=== PATIENT | female | born 2000 | race Caucasian/White ===

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

== ENCOUNTER → 2021-02-02 | Outpatient (CLI) | payer BC ==
[2021-02-02 16:21] LABS: HCT 43.3 % (37.2-46.3); HGB 14.2 g/dL (12.0-15.0); MCH 28.5 pg (27.0-32.0); MCHC 32.8 g/dL (32.0-37.0); MCV 86.8 fL (80.0-97.0); Mean Platelet Volume 9.5 fL (9.5-12.2); Platelet Count 367 X 10*3/uL (140-440); RBC 4.99 X 10*6/uL (4.10-5.20); RDW 12.7 % (11.5-14.5); WBC 9.11 X 10*3/uL (4.50-10.00)
[2021-02-02 16:28] LABS: African American GFR (CKD) 123.9 (60.0-200.0); Albumin 4.7 g/dL (3.80-4.90); Albumin/Globulin Ratio 1.52 (1.60-3.17); Anion Gap 7.8 mmol/L (4.00-12.00); BUN/Creat Ratio 12.5 Ratio (12.00-20.00); Calcium 9.8 mg/dL (8.7-10.3); Carbon Dioxide 25.2 mmol/L (21.6-31.8); Chol/HDL Ratio 3.77; Globulin 3.1 g/dL (1.6-3.3); LDL Cholesterol,Calculated 144.8 mg/dL (0.0-131.0); Non-African American GFR(CKD) 106.9 (60.0-200.0); Potassium 4.6 mmol/L (3.5-5.5); Total Bilirubin 0.4 mg/dL (0.3-1.2); Total Protein 7.8 g/dL (6.2-8.2); VLDL Calculation 21.2 mg/dL (5.00-40.00)
[2021-02-02 16:36] LABS: T4, Free (Free Thyroxine) 1.3 ng/dL (0.83-1.43)
[2021-02-02 21:26] LABS: Hemoglobin A1C 4.3 % (4.0-6.0)
== END | disposition home or self-care (01) ==
LOC: LABWHC1 11:53
PROVIDERS: ATTEND Pediatrics
DX: L83 Acanthosis nigricans (principal)
CPT/HCPCS: 36415; 80053; 80061; 82306; 83036; 84439; 84443; 85027

== ENCOUNTER 2021-05-03 08:39 | Emergency (ER) | payer BC ==
[2021-05-03 08:44] VITALS: RESP 18; TEMP 99.1
[2021-05-03] MEDS ORDERED: SODIUM CHLORIDE 0.9% 500 ML 500 ML IV STA (08:50)
--- NOTE | 2021-05-03 08:54 | ED ---
Abdominal Pain HPI - General Chief Complaint: Abdominal Pain Stated Complaint: Abdominal Pain Source: patient, RN notes reviewed Mode of arrival: ambulatory Limitations: no limitations - History of Present Illness Initial Comments: Patient is 21-year-old female presenting to the ED for abdominal pain. Patient states that 3 months prior had similar generalized discomfort and was told by PCP she had an inflamed gallbladder and to watch her symptoms to increase. Patient states the symptoms became worse in the last 3 days with increased pain in the right upper quadrant. Patient states that she's had decrease in appetite over the last 3 days but denies nausea, vomiting, fever, changes in bowel movements or urination. Patient denies symptoms related to menstrual cycle her chance of being at this time. - Related Data Home Medications Medication Instructions Recorded Confirmed Medroxyprogesterone Acetate 150 mg IM Q84D 01/28/17 05/03/21 [Depo-Provera] FLUoxetine HCL [PROzac] 10 mg PO DAILY 05/03/21 05/03/21 Previous Rx's Medication Instructions Recorded Ondansetron Odt [Zofran Odt] 4 mg PO Q8HR PRN #10 tab 05/03/21 Allergies Allergy/AdvReac Type Severity Reaction Status Date / Time benzonatate Allergy Rash/Hives Verified 05/03/21 10:39 [From Anselmo Ridley] Review of Systems ROS Statement: Those systems with pertinent positive or pertinent negative responses have been documented in the HPI. ROS Other: All systems not noted in ROS Statement are negative. Past Medical History Past Medical History: No Reported History Additional Past Medical History / Comment(s): cholecystits History of Any Multi-Drug Resistant Organisms: None Reported Past Surgical History: No Surgical Hx Reported Past Psychological History: Anxiety Smoking Status: Never smoker Past Alcohol Use History: None Reported Past Drug Use History: None Reported General Exam Limitations: no limitations General appearance: alert, in no apparent distress Respiratory exam: Present: normal lung sounds bilaterally. Absent: respiratory distress, wheezes, rales, rhonchi, stridor Cardiovascular Exam: Present: regular rate, normal rhythm, normal heart sounds. Absent: systolic murmur, diastolic murmur, rubs, gallop, clicks GI/Abdominal exam: Present: soft, tenderness (Right upper quadrant, mild), guarding, normal bowel sounds Back exam: Present: normal inspection Neurological exam: Present: alert, oriented X3 Skin exam: Present: warm, dry, intact, normal color. Absent: rash Course Vital Signs 05/03/21 08:41 Temperature 99.1 F Pulse Rate 72 Respiratory 18 Rate Blood Pressure 146/88 O2 Sat by Pulse 99 Oximetry Medical Decision Making - Medical Decision Making Ultrasound labs reviewed patient has evidence of fatty liver disease. Patient may have underlying biliary dyskinesia will follow-up with on-call surgery return parameters were discussed. - Lab Data Result diagrams: 05/03/21 09:20 05/03/21 09:20 Lab Results 05/03/21 05/03/21 05/03/21 Range/Units 09:20 09:20 10:00 WBC 7.3 (4.0-11.0) k/uL RBC 5.49 H (3.80-5.40) m/uL Hgb 15.9 (11.4-16.0) gm/dL Hct 48.7 H (34.0-46.0) % MCV 88.7 (80.0-100.0) fL MCH 29.0 (25.0-35.0) pg MCHC 32.7 (31.0-37.0) g/dL RDW 12.9 (11.5-15.5) % Plt Count 293 (150-450) k/uL MPV 8.5 Neutrophils % 54 % Lymphocytes % 36 % Monocytes % 5 % Eosinophils % 3 % Basophils % 1 % Neutrophils # 4.0 (1.3-7.7) k/uL Lymphocytes # 2.6 (1.0-4.8) k/uL Monocytes # 0.4 (0-1.0) k/uL Eosinophils # 0.2 (0-0.7) k/uL Basophils # 0.0 (0-0.2) k/uL Sodium 140 (137-145) mmol/L Potassium 4.5 (3.5-5.1) mmol/L Chloride 108 H (98-107) mmol/L Carbon Dioxide 20 L (22-30) mmol/L Anion Gap 12 mmol/L BUN 9 (7-17) mg/dL Creatinine 0.62 (0.52-1.04) mg/dL Est GFR (CKD-EPI)AfAm >90 (>60 ml/min/1.73 sqM) Est GFR (CKD-EPI)NonAf >90 (>60 ml/min/1.73 sqM) Glucose 94 (74-99) mg/dL Calcium 10.1 (8.4-10.2) mg/dL Total Bilirubin 0.5 (0.2-1.3) mg/dL AST 30 (14-36) U/L ALT 33 (4-34) U/L Alkaline Phosphatase 85 (38-126) U/L Total Protein 8.6 H (6.3-8.2) g/dL Albumin 4.9 (3.5-5.0) g/dL Lipase 69 (23-300) U/L Urine Color Colorless Urine Appearance Cloudy H (Clear) Urine pH 5.0 (5.0-8.0) Ur Specific [place] 1.005 (1.001-1.035) Urine Protein Negative (Negative) Urine Glucose (UA) Negative (Negative) Urine Ketones Negative (Negative) Urine Blood Negative (Negative) Urine Nitrite Negative (Negative) Urine Bilirubin Negative (Negative) Urine Urobilinogen <2.0 (<2.0) mg/dL Ur Leukocyte Esterase Negative (Negative) Urine WBC 3 (0-5) /hpf Ur Squamous Epith Cells 7 H (0-4) /hpf Urine Bacteria Many H (None) /hpf Urine Mucus Rare H (None) /hpf Urine HCG, Qual (Not Detectd) 05/03/21 Range/Units 10:00 WBC (4.0-11.0) k/uL RBC (3.80-5.40) m/uL Hgb (11.4-16.0) gm/dL Hct (34.0-46.0) % MCV (80.0-100.0) fL MCH (25.0-35.0) pg MCHC (31.0-37.0) g/dL RDW (11.5-15.5) % Plt Count (150-450) k/uL MPV Neutrophils % % Lymphocytes % % Monocytes % % Eosinophils % % Basophils % % Neutrophils # (1.3-7.7) k/uL Lymphocytes # (1.0-4.8) k/uL Monocytes # (0-1.0) k/uL Eosinophils # (0-0.7) k/uL Basophils # (0-0.2) k/uL Sodium (137-145) mmol/L Potassium (3.5-5.1) mmol/L Chloride (98-107) mmol/L Carbon Dioxide (22-30) mmol/L Anion Gap mmol/L BUN (7-17) mg/dL Creatinine (0.52-1.04) mg/dL Est GFR (CKD-EPI)AfAm (>60 ml/min/1.73 sqM) Est GFR (CKD-EPI)NonAf (>60 ml/min/1.73 sqM) Glucose (74-99) mg/dL Calcium (8.4-10.2) mg/dL Total Bilirubin (0.2-1.3) mg/dL AST (14-36) U/L ALT (4-34) U/L Alkaline Phosphatase (38-126) U/L Total Protein (6.3-8.2) g/dL Albumin (3.5-5.0) g/dL Lipase (23-300) U/L Urine Color Urine Appearance (Clear) Urine pH (5.0-8.0) Ur Specific [place] (1.001-1.035) Urine Protein (Negative) Urine Glucose (UA) (Negative) Urine Ketones (Negative) Urine Blood (Negative) Urine Nitrite (Negative) Urine Bilirubin (Negative) Urine Urobilinogen (<2.0) mg/dL Ur Leukocyte Esterase (Negative) Urine WBC (0-5) /hpf Ur Squamous Epith Cells (0-4) /hpf Urine Bacteria (None) /hpf Urine Mucus (None) /hpf Urine HCG, Qual Not Detected (Not Detectd) Disposition Clinical Impression: Abdominal pain, Biliary colic symptom Disposition: HOME SELF-CARE Condition: Stable Instructions (If sedation given, give patient instructions): Abdominal Pain (ED), Biliary Colic (ED) Additional Instructions: Please return to the Emergency Department if symptoms worsen or any other concerns. Prescriptions: Ondansetron Odt [Zofran Odt] 4 mg PO Q8HR PRN #10 tab PRN Reason: Nausea Is patient prescribed a controlled substance at d/c from ED?: No Referrals: Arun Tidwell MD [Primary Care Provider] - 1-2 days Ever Winslow MD [STAFF PHYSICIAN] - 1-2 days Time of Disposition: 10:52
[2021-05-03 09:59] LABS: Basophils % (A) 1 %; Eosinophils # (A) 0.2 k/uL (0-0.7); Eosinophils % (A) 3 %; HCT 48.7 % (34.0-46.0); HGB 15.9 gm/dL (11.4-16.0); Lymphocytes # (A) 2.6 k/uL (1.0-4.8); Lymphocytes % (A) 36 %; MCHC 32.7 g/dL (31.0-37.0); MCV 88.7 fL (80.0-100.0); Mean Platelet Volume 8.5; Monocytes # (A) 0.4 k/uL (0-1.0); Monocytes % (A) 5 %; Neutrophils % (A) 54 %; Platelet Count 293 k/uL (150-450); RBC 5.49 m/uL (3.80-5.40); RDW 12.9 % (11.5-15.5); WBC 7.3 k/uL (4.0-11.0)
--- NOTE | 2021-05-03 10:00 | US ---
EXAMINATION TYPE: US gallbladder DATE OF EXAM: 05/03/2021 COMPARISON: NONE CLINICAL HISTORY: RUQ pain. EXAM MEASUREMENTS: Liver Length: 13.9 cm Gallbladder Wall: 0.2 cm CBD: 0.3 cm Right Kidney: 8.4x5.2x4.8 cm Pancreas: Tail obscured by overlying bowel gas Liver: ? large area of focal fatty sparring Gallbladder: wnl Evidence for sonographic Ackerman's sign: No CBD: wnl Right Kidney: wnl IMPRESSION: Fatty liver with areas of focal fatty sparing.
[2021-05-03 10:09] LABS: ALT 33 U/L (4-34); African American GFR (CKD) >90 (>60 ml/min/1.73 sqM); Albumin 4.9 g/dL (3.5-5.0); Anion Gap 12 mmol/L; Blood Urea Nitrogen 9 mg/dL (7-17); Calcium 10.1 mg/dL (8.4-10.2); Carbon Dioxide 20 mmol/L (22-30); Chloride 108 mmol/L (98-107); Glucose 94 mg/dL (74-99); Lipase 69 U/L (23-300); Non-African American GFR(CKD) >90 (>60 ml/min/1.73 sqM); Sodium 140 mmol/L (137-145); Total Bilirubin 0.5 mg/dL (0.2-1.3); Total Protein 8.6 g/dL (6.3-8.2)
[2021-05-03 10:11] LABS: AST 30 U/L (14-36); Alkaline Phosphatase 85 U/L (38-126); Potassium 4.5 mmol/L (3.5-5.1)
[2021-05-03 10:25] LABS: Appearance,Urine Cloudy (Clear); Bacteria,Urine Many /hpf; Bilirubin,Urine Negative (Negative); Blood,Urine Negative (Negative); Color,Urine Colorless; Glucose,Urine (UA) Negative (Negative); Ketones,Urine Negative (Negative); Leukocyte Esterase,Urine Negative (Negative); Mucus,Urine Rare /hpf; Nitrite,Urine Negative (Negative); Protein,Urine Negative (Negative); Specific Gravity,Urine 1.005 (1.001-1.035); Squamous Epithelial Cell,Urine 7 /hpf (0-4); Urobilinogen,Urine <2.0 mg/dL (<2.0); WBC,Urine 3 /hpf (0-5)
[2021-05-03] MEDS ORDERED: ACET/COD 300 MG/30 MG STARTER PACK 6 TAB BTL PO STA (10:51)
[2021-05-03 11:28] VITALS: BP 124/63; PULSE 62
== END 2021-05-03 11:28 | disposition home or self-care (01) ==
LOC: EC 08:39
DX: R10.84 Generalized abdominal pain (principal); F41.9 Anxiety disorder, unspecified
CPT/HCPCS: 36415; 76705; 80053; 81001; 81025; 83690; 85025; 99284

== ENCOUNTER 2021-05-06 10:44 | Emergency (ER) | payer BC ==
[2021-05-06 12:56] VITALS: TEMP 98.2
[2021-05-06] MEDS ORDERED: MORPHINE SULFATE 2 MG/ML SYRINGE IVP STA ×2 (16:43→19:53)
[2021-05-06] MEDS ORDERED: KETOROLAC 15 MG/ML 1 ML VIAL IVP STA (16:43)
[2021-05-06] MEDS ORDERED: SODIUM CHLORIDE 0.9% 1,000 ML IV STA (16:43)
[2021-05-06] MEDS ORDERED: ONDANSETRON 4 MG/2 ML VIAL IVP STA (16:43)
[2021-05-06 17:17] LABS: Basophils % (A) 0 %; Eosinophils # (A) 0.3 k/uL (0-0.7); Eosinophils % (A) 3 %; HCT 49.3 % (34.0-46.0); HGB 16.7 gm/dL (11.4-16.0); Lymphocytes # (A) 2.5 k/uL (1.0-4.8); Lymphocytes % (A) 24 %; MCH 29.6 pg (25.0-35.0); MCHC 33.9 g/dL (31.0-37.0); MCV 87.4 fL (80.0-100.0); Monocytes # (A) 0.4 k/uL (0-1.0); Monocytes % (A) 4 %; Neutrophils # (A) 6.9 k/uL (1.3-7.7); Neutrophils % (A) 68 %; Platelet Count 330 k/uL (150-450); RBC 5.63 m/uL (3.80-5.40); RDW 12.9 % (11.5-15.5); WBC 10.2 k/uL (4.0-11.0)
[2021-05-06 17:48] LABS: ALT 69 U/L (4-34); AST 46 U/L (14-36); African American GFR (CKD) >90 (>60 ml/min/1.73 sqM); Albumin 5.2 g/dL (3.5-5.0); Alkaline Phosphatase 88 U/L (38-126); Amylase 57 U/L (30-110); Anion Gap 13 mmol/L; Blood Urea Nitrogen 11 mg/dL (7-17); Calcium 10.6 mg/dL (8.4-10.2); Carbon Dioxide 23 mmol/L (22-30); Chloride 103 mmol/L (98-107); Glucose 107 mg/dL (74-99); Lipase 54 U/L (23-300); Non-African American GFR(CKD) >90 (>60 ml/min/1.73 sqM); Potassium 4.2 mmol/L (3.5-5.1); Sodium 139 mmol/L (137-145); Total Bilirubin 0.5 mg/dL (0.2-1.3); Total Protein 9.3 g/dL (6.3-8.2)
--- NOTE | 2021-05-06 18:22 | US ---
EXAMINATION TYPE: US pelvic complete DATE OF EXAM: 05/06/2021 COMPARISON: NONE CLINICAL HISTORY: evaluate for torsion. Pain. Evaluate for torsion. G0. Patient not sexually active. TA per Dr. Vasquez. TECHNIQUE: Transabdominal (TA). Date of LMP: Unknown. EXAM MEASUREMENTS: Uterus: 7.4 x 3.9 x 2.4 cm Endometrial Stripe: 0.41 cm Right Ovary: 3.7 x 1.5 x 1.9 cm Left Ovary: 3.2 x 2.3 x 1.8 cm 1. Uterus: Anteverted 2. Endometrium: Measures 0.41 cm. 3. Right Ovary: Subcentimeter anechoic areas seen. ?Measures upper limits of normal. 4. Left Ovary: Appears wnl. Spectral, color and waveform doppler imaging shows arterial and venous flow within the ovaries. 5. Bilateral Adnexa: Appear wnl. 6. Posterior cul-de-sac: Appears wnl. IMPRESSION: Negative exam. No evidence of ovarian torsion.
[2021-05-06 18:27] LABS: Appearance,Urine Clear (Clear); Bilirubin,Urine Negative (Negative); Blood,Urine Negative (Negative); Color,Urine Light Yellow; Glucose,Urine (UA) Negative (Negative); Ketones,Urine Negative (Negative); Leukocyte Esterase,Urine Negative (Negative); Nitrite,Urine Negative (Negative); PH, Urine 6.5 (5.0-8.0); Protein,Urine Negative (Negative); Specific Gravity,Urine 1.011 (1.001-1.035); Urobilinogen,Urine <2.0 mg/dL (<2.0)
[2021-05-06] MEDS ORDERED: METOCLOPRAMIDE 5 MG/ML 2 ML VIAL IVP STA (19:20)
--- NOTE | 2021-05-06 19:27 | ED ---
General Adult HPI - General Chief complaint: Abdominal Pain Stated complaint: right side abd pain Time Seen by Provider: 05/06/21 15:51 Source: patient, RN notes reviewed, old records reviewed Mode of arrival: ambulatory Limitations: no limitations - History of Present Illness Initial comments: Patient is a 21-year-old female with no significant past medical history presents emergency Department after being seen last week for similar complaints. Patient is currently complaining of right upper quadrant abdominal pain. She states she was evaluated last and she is here for similar complaint which was found to be relatively unremarkable and discharged for follow-up with surgery. Gallbladder ultrasound at that time did not reveal any signs of acute cholecystitis. Is a fatty liver with areas of focal fatty sparing. She states that symptoms somewhat improved but returns today with continued pain as well as new pain in the right lower quadrant. She states she feels nauseous but denies any episodes of emesis or diarrhea. Denies any chest pain, shortness of breath. Denies any fevers, chills, cough. Denies any sick contacts or urinary comp laints at this time. Patient is not sexually active. She denies any vaginal discharge or bleeding. She has an unknown history personally as well as familial for ovarian cyst. She has no other acute complaints at this time. She presents over concern for nausea as well as abdominal discomfort. - Related Data Home Medications Medication Instructions Recorded Confirmed Medroxyprogesterone Acetate 150 mg IM Q84D 01/28/17 05/03/21 [Depo-Provera] FLUoxetine HCL [PROzac] 10 mg PO DAILY 05/03/21 05/03/21 Previous Rx's Medication Instructions Recorded Ondansetron Odt [Zofran Odt] 4 mg PO Q8HR PRN #10 tab 05/03/21 HYDROcodone/APAP 5-325MG [Crapo 5] 1 each PO Q6HR PRN 3 Days #12 tab 05/06/21 Metoclopramide [Reglan] 5 mg PO BID PRN 4 Days #8 tab 05/06/21 Allergies Allergy/AdvReac Type Severity Reaction Status Date / Time benzonatate Allergy Rash/Hives Verified 05/06/21 12:54 [From Anselmo Ridley] Review of Systems ROS Statement: Those systems with pertinent positive or pertinent negative responses have been documented in the HPI. Review of Systems: CONST: Denies fever EYES: Denies blurry vision ENT: Denies nasal congestion C/V: Denies Chest pain RESP: Denies shortness of breath GI: Endorses abdominal pain : Denies dysuria SKIN: Denies rash. MSK: Denies joint pain. NEURO: Denies headache ROS Other: All systems not noted in ROS Statement are negative. Past Medical History Past Medical History: No Reported History Additional Past Medical History / Comment(s): cholecystits History of Any Multi-Drug Resistant Organisms: None Reported Past Surgical History: No Surgical Hx Reported Past Psychological History: Anxiety Smoking Status: Never smoker Past Alcohol Use History: None Reported Past Drug Use History: None Reported General Exam - General Exam Comments Initial Comments: General: Appears in no acute distress. HEAD: Normal with no signs of head trauma. EYES: PERRLA, EOMI, conjunctiva normal, no discharge. ENT: Hearing grossly intact, normal oropharynx. RESPIRATORY: Clear breath sounds bilaterally. No wheezes, rales, or rhonchi. C/V: Regular rate and rhythm. S1 and S2 auscultated, no edema, peripheral pulses 2+ and intact throughout ABD: Abdomen is soft, nondistended. Patient has mild tender to palpation of the right upper quadrant as well as right lower quadrant. She is no suprapubic of left-sided abdominal pain. She is now back pain or tenderness in the CVA to percussion. No rebound tenderness. No peritoneal signs. EXT: Normal range of motion, no obvious deformity SKIN: No rashes or lesions observed on exposed skin. NEURO: Alert and Oriented 4. Limitations: no limitations Course Vital Signs 05/06/21 12:54 Temperature 98.2 F Pulse Rate 73 Respiratory 18 Rate Blood Pressure 142/83 O2 Sat by Pulse 99 Oximetry Medical Decision Making - Medical Decision Making Based on the patient's presentation and physical exam, I'm concerned for possible intra-abdominal pathology for current symptoms. She is a revisit from prior visit. She has no pain in the right lower quadrant of her abdomen. Workup last time was unremarkable. We will repeat abdominal laboratory studies at this time. I will also add on a urinalysis, test, as well as a pelvic ultrasound rule out possibility of ovarian torsion. She was in agreement with this plan. CT abdomen and pelvis will also be obtained to assess for acute intra-abdominal process such as appendicitis. Patient was in agreement this plan. She'll be sent likely treated with IV Toradol, morphine, Zofran, 1 L fluid bolus. Patient was in agreement this plan. Lavatory studies were remarkable for mildly elevated AST and ALT of 46 and 69. Urinalysis is unremarkable. She is not . The remainder of her labs are relatively unremarkable. She does have a mild hypercalcemia of 10.6. Patient's pelvis ultrasound was unremarkable and showed no signs of ovarian torsion. Patient is a little nauseous while we are waiting for results of CT imaging and was administered Reglan. Patient's CT and pelvis was unremarkable and showed no acute intra-abdominal process. Reevaluation come patient was feeling improved. She has tolerated by mouth intake at this time. She already has an appointment with Dr. Winslow for tomorrow. I do believe it is safer to be discharged home at this time with follow-up with her surgeon tomorrow. There were in agreement this plan. I will provide the patient with a prescription for 12 tabs of Crapo 5, Reglan. I instructed the patient to follow up with their PCP in the next 3 days. I inst ructed them to keep their appointment with Dr. Winslow tomorrow. I explained that the patient should return to the emergency department if they experience any worsening symptoms. Strict return precautions were discussed with the patient. The patient expressed understanding of these instructions. I answered all questions that the patient had. The patient was discharged home in fair condition with their prescriptions and follow up information. - Lab Data Result diagrams: 05/06/21 17:07 05/06/21 17:07 Lab Results 05/06/21 05/06/21 05/06/21 Range/Units 16:44 17:07 17:07 WBC 10.2 (4.0-11.0) k/uL RBC 5.63 H (3.80-5.40) m/uL Hgb 16.7 H (11.4-16.0) gm/dL Hct 49.3 H (34.0-46.0) % MCV 87.4 (80.0-100.0) fL MCH 29.6 (25.0-35.0) pg MCHC 33.9 (31.0-37.0) g/dL RDW 12.9 (11.5-15.5) % Plt Count 330 (150-450) k/uL MPV 7.0 Neutrophils % 68 % Lymphocytes % 24 % Monocytes % 4 % Eosinophils % 3 % Basophils % 0 % Neutrophils # 6.9 (1.3-7.7) k/uL Lymphocytes # 2.5 (1.0-4.8) k/uL Monocytes # 0.4 (0-1.0) k/uL Eosinophils # 0.3 (0-0.7) k/uL Basophils # 0.0 (0-0.2) k/uL Sodium 139 (137-145) mmol/L Potassium 4.2 (3.5-5.1) mmol/L Chloride 103 (98-107) mmol/L Carbon Dioxide 23 (22-30) mmol/L Anion Gap 13 mmol/L BUN 11 (7-17) mg/dL Creatinine 0.67 (0.52-1.04) mg/dL Est GFR (CKD-EPI)AfAm >90 (>60 ml/min/1.73 sqM) Est GFR (CKD-EPI)NonAf >90 (>60 ml/min/1.73 sqM) Glucose 107 H (74-99) mg/dL Plasma Lactic Acid Adrian (0.7-2.0) mmol/L Calcium 10.6 H (8.4-10.2) mg/dL Total Bilirubin 0.5 (0.2-1.3) mg/dL AST 46 H (14-36) U/L ALT 69 H (4-34) U/L Alkaline Phosphatase 88 (38-126) U/L Total Protein 9.3 H (6.3-8.2) g/dL Albumin 5.2 H (3.5-5.0) g/dL Amylase 57 (30-110) U/L Lipase 54 (23-300) U/L Urine Color Urine Appearance (Clear) Urine pH (5.0-8.0) Ur Specific Molino (1.001-1.035) Urine Protein (Negative) Urine Glucose (UA) (Negative) Urine Ketones (Negative) Urine Blood (Negative) Urine Nitrite (Negative) Urine Bilirubin (Negative) Urine Urobilinogen (<2.0) mg/dL Ur Leukocyte Esterase (Negative) Urine HCG, Qual Not Detected (Not Detectd) 05/06/21 05/06/21 Range/Units 17:07 18:08 WBC (4.0-11.0) k/uL RBC (3.80-5.40) m/uL Hgb (11.4-16.0) gm/dL Hct (34.0-46.0) % MCV (80.0-100.0) fL MCH (25.0-35.0) pg MCHC (31.0-37.0) g/dL RDW (11.5-15.5) % Plt Count (150-450) k/uL MPV Neutrophils % % Lymphocytes % % Monocytes % % Eosinophils % % Basophils % % Neutrophils # (1.3-7.7) k/uL Lymphocytes # (1.0-4.8) k/uL Monocytes # (0-1.0) k/uL Eosinophils # (0-0.7) k/uL Basophils # (0-0.2) k/uL Sodium (137-145) mmol/L Potassium (3.5-5.1) mmol/L Chloride (98-107) mmol/L Carbon Dioxide (22-30) mmol/L Anion Gap mmol/L BUN (7-17) mg/dL Creatinine (0.52-1.04) mg/dL Est GFR (CKD-EPI)AfAm (>60 ml/min/1.73 sqM) Est GFR (CKD-EPI)NonAf (>60 ml/min/1.73 sqM) Glucose (74-99) mg/dL Plasma Lactic Acid Adrian 1.3 (0.7-2.0) mmol/L Calcium (8.4-10.2) mg/dL Total Bilirubin (0.2-1.3) mg/dL AST (14-36) U/L ALT (4-34) U/L Alkaline Phosphatase (38-126) U/L Total Protein (6.3-8.2) g/dL Albumin (3.5-5.0) g/dL Amylase (30-110) U/L Lipase (23-300) U/L Urine Color Light Yellow Urine Appearance Clear (Clear) Urine pH 6.5 (5.0-8.0) Ur Specific Molino 1.011 (1.001-1.035) Urine Protein Negative (Negative) Urine Glucose (UA) Negative (Negative) Urine Ketones Negative (Negative) Urine Blood Negative (Negative) Urine Nitrite Negative (Negative) Urine Bilirubin Negative (Negative) Urine Urobilinogen <2.0 (<2.0) mg/dL Ur Leukocyte Esterase Negative (Negative) Urine HCG, Qual (Not Detectd) Disposition Clinical Impression: Abdominal pain of unknown cause, Nausea Disposition: HOME SELF-CARE Condition: Fair Instructions (If sedation given, give patient instructions): Abdominal Pain (ED) Prescriptions: HYDROcodone/APAP 5-325MG [Crapo 5] 1 each PO Q6HR PRN 3 Days #12 tab PRN Reason: Pain Metoclopramide [Reglan] 5 mg PO BID PRN 4 Days #8 tab PRN Reason: Nausea Is patient prescribed a controlled substance at d/c from ED?: No Referrals: Arun Tidwell MD [Primary Care Provider] - 1-2 days
--- NOTE | 2021-05-06 19:37 | CT ---
EXAMINATION TYPE: CT abdomen pelvis w con DATE OF EXAM: 05/06/2021 COMPARISON: None HISTORY: RUQ and RLQ pain. CT DLP: 1070 mGycm Automated exposure control for dose reduction was used. CONTRAST: Performed with IV Contrast, patient injected with 100 mL of Isovue 300. Images obtained from the diaphragm to the floor the pelvis with IV contrast. Lung bases are clear. There is no pleural effusion. Heart size is normal. There is no pericardial eff usion. Liver spleen stomach pancreas gallbladder appear intact bile ducts are not dilated. There is n o adrenal mass. Kidneys show satisfactory contrast opacification. There is no hydronephrosis. Appendi x appears normal. Bladder distends smoothly. There is no inguinal hernia. There is no free fluid in t he pelvis. There is no mesenteric edema. There is no ascites or free air. There is no bowel obstruction. There i s no evidence of a pelvic mass. The lumbar vertebra have normal alignment. Posterior elements are intact. The bony pelvis is intact. Hip joints are intact. IMPRESSION: Negative CT scan abdomen and pelvis. Normal appendix. No sign of inflammatory bowel disease. No renal stone or obstruction.
[2021-05-06 20:46] VITALS: BP 121/68; PULSE 62; RESP 16
== END 2021-05-06 20:46 | disposition home or self-care (01) ==
LOC: EC 10:44
DX: R10.11 Right upper quadrant pain (principal); R11.0 Nausea; F41.9 Anxiety disorder, unspecified
CPT/HCPCS: 99284; 96374; 96375 ×3; 96376; 96361 ×3; 36415; 80053; 82150; 83605; 83690; 85025; 81003; 81025; 93975; 76856; 74177; J2765; J2405; J2270; J1885; Q9967

== ENCOUNTER → 2021-05-14 | Outpatient (CLI) | payer BC ==
--- NOTE | 2021-05-14 11:42 | NM ---
EXAMINATION TYPE: NM hepatobiliary w EF DATE OF EXAM: 05/14/2021 COMPARISON: NONE INDICATION: Biliary dyskinesia TECHNIQUE: After the intravenous administration of 4.2 mCi Tc 99m Mebrofenin hepatobiliary scintigrap hy is performed. Images were obtained immediately post injection. FINDINGS: There is prompt uptake and excretion of radiotracer by the liver. Extrahepatic ducts are identified at C6 minutes. The gallbladder is visualized within 4 minutes. Small bowel activity is noted within 18 minutes. At one hour 8 ounces of oral ensure plus is given to mimic CCK and gallbladder ejection fraction is c alculated at 83 %, which is elevated. (Normal >35% and <80%.). IMPRESSION: 1. Correlate for biliary hyperkinesia with an ejection fraction of 83%.
== END | disposition home or self-care (01) ==
LOC: RADNMMAIN 07:07
PROVIDERS: ATTEND Surgery
DX: K82.8 Other specified diseases of gallbladder (principal)
CPT/HCPCS: 78226; A9537

== ENCOUNTER 2021-05-27 10:17 | Day surgery (SDC) | payer BC ==
[2021-05-24 09:52] VITALS: BMI 32.3
[~2021-05-27 10:17] MED LIST: ACETAMINOPHEN TAB 500 MG TAB PO PRN; DEXAMETHASONE SOD PHOSPHATE 4 MG/ML 1 ML VIAL IV ONE; HEPARIN SODIUM,PORCINE/PF 5,000 UNIT/0.5 ML SYRINGE SQ PRN; MIDAZOLAM 2 MG/2 ML VIAL IV PRN; SCOPOLAMINE 1.5MG/72HR PATCH TRANSDERM ONE
[2021-05-27] MEDS: LACTATED RINGERS 1,000 ML IV SCH ×2 (10:50→16:13)
[2021-05-27] MEDS: ONDANSETRON 4 MG/2 ML VIAL IVP ONE ×2 (10:50→13:59)
[2021-05-27] MEDS ORDERED: LIDOCAINE 1% (10MG/ML) FOR IV START INTRADERMA ONE (10:50)
[2021-05-27] MEDS ORDERED: BUPIVACAIN-EPI 0.25%-1:200,000 30 ML VIAL SQ ONE ×2 (12:30→12:33)
--- NOTE | 2021-05-27 12:47 | P.GSHP ---
History of Present Illness H&P Date: 05/27/21 Chief Complaint: Right upper quadrant pain This a 21-year-old female who presents today for laparoscopic cholecystectomy. Patient with recurrent pain. Eyes conjunctiva hyperkinetic gallbladder consistent with chronic cholecystitis. Past Medical History Past Medical History: No Reported History Additional Past Medical History / Comment(s): cholecystits History of Any Multi-Drug Resistant Organisms: None Reported Past Surgical History: No Surgical Hx Reported Past Anesthesia/Blood Transfusion Reactions: No Reported Reaction Additional Past Anesthesia/Blood Transfusion Reaction / Comment(s): NO PRIOR ANESTHESIA Smoking Status: Never smoker - Past Family History Mother Family Medical History: No Reported History Medications and Allergies Home Medications Medication Instructions Recorded Confirmed Type Medroxyprogesterone Acetate 150 mg IM Q84D 01/28/17 05/24/21 History [Depo-Provera] FLUoxetine HCL [PROzac] 10 mg PO DAILY 05/03/21 05/24/21 History Allergies Allergy/AdvReac Type Severity Reaction Status Date / Time benzonatate Allergy Rash/Hives Verified 05/27/21 10:45 [From Anselmo Ridley] Surgical - Exam Vital Signs Temp Pulse Resp BP Pulse Ox 98.1 F 94 16 148/82 98 05/27/21 10:40 05/27/21 10:40 05/27/21 10:40 05/27/21 10:40 05/27/21 10:40 - General well developed, well nourished, no distress - Eyes PERRL - ENT normal pinna - Neck no masses - Respiratory normal expansion - Cardiovascular Rhythm: regular - Abdomen Abdomen: soft, non tender Assessment and Plan Assessment: Re: Quadrant pain Biliary dysfunction We'll perform laparoscopic cholecystectomy
--- NOTE | 2021-05-27 12:48 | P.OP ---
Date of Procedure: 05/27/21 Preoperative Diagnosis: Cholecystitis Postoperative Diagnosis: Cholecystitis Procedure(s) Performed: Laparoscopic cholecystectomy Anesthesia: HAYDEN Surgeon: Ever Winslow Estimated Blood Loss (ml): 5 Pathology: other (Gallbladder) Condition: stable Disposition: PACU Description of Procedure: The patient was placed on the operating table. The patient received a general endotracheal tube anesthesia. The patients abdomen was prepped and draped in the usual sterile fashion. Through an infraumbilical stab incision, the fascia of the anterior abdominal wall was grasped with a pair of Kochers and then the Veress needle was placed in the peritoneal cavity. Position of the Veress needle was confirmed with positive drop test. The abdomen was then insufflated. After adequate insufflation, the 10 mm trocar was placed in the peritoneal cavity. Following this the laparoscope was placed in the peritoneal cavity. The patient was placed in the head-up, right side up position and then a 5 mm trocar was placed in the right lateral and right subcostal position under direct visualization. A 8 mm trocar was placed in the epigastric position. The gallbladder was grasped in the fundus and infundibulum. Traction on the gallbladder was placed in the lateral and the cephalad positions. The triangle of Calot was visualized.. The cystic duct was bluntly dissected until the union of the cystic duct and common bile duct was seen. A critical view of safety was achieved. The cystic duct was then divided and sealed with the Harmonic scissors. A PDS Endoloop was then placed throughout the cystic duct stump. The cystic artery divided and sealed with the Harmonic scissors. The gallbladder was then removed from the liver bed using Harmonic scissors. The gallbladder was then extracted through the epigastric port site. Operative field was checked for any bleeding spots and Harmonic scissors was used to coagulate the liver bed. The abdomen was irrigated. The trocars were removed. The skin was closed using interrupted 3-0 Vicryl suture. Dermabond dressing were applied. The patient tolerated the procedure well.
[2021-05-27] MEDS: HYDROmorphone 0.5 MG/0.5 ML SYRINGE IVP PRN ×3 (13:08→13:40)
[2021-05-27 13:12] VITALS: TEMP 98.2
[2021-05-27] MEDS ORDERED: LACTATED RINGERS 1,000 ML IV ONE (13:44)
[2021-05-27] MEDS ORDERED: ONDANSETRON 4 MG/2 ML VIAL ONE (14:00)
[2021-05-27 14:20] VITALS: RESP 16
[2021-05-27 17:20] VITALS: BP 113/66; PULSE 66
== END 2021-05-27 18:06 | disposition home or self-care (01) ==
LOC: OR 10:17
PROVIDERS: ATTEND Surgery
DX: K81.1 Chronic cholecystitis (principal); Z79.3 Long term (current) use of hormonal contraceptives; K76.0 Fatty (change of) liver, not elsewhere classified; K21.9 Gastro-esophageal reflux disease without esophagitis; F41.9 Anxiety disorder, unspecified; Z88.8 Allergy status to other drugs, medicaments and biological substances
CPT/HCPCS: 47562; 81025; 88304; J1100; J0690; J2405; J1170; J1790; J1644

== ENCOUNTER 2024-06-30 13:08 | Emergency (ER) | payer BC ==
[2024-06-30 13:35] VITALS: TEMP 97.8
[2024-06-30 13:35] LABS: Glucose,Whole Blood 79 mg/dL (70-110)
--- NOTE | 2024-06-30 14:53 | ED ---
General Adult HPI - General Chief complaint: Altered Mental Status Stated complaint: AMS Time Seen by Provider: 06/30/24 14:51 Source: patient, RN notes reviewed Mode of arrival: ambulatory Limitations: no limitations - History of Present Illness Initial comments: 24-year-old female with no significant past medical history presenting to the ER for nausea/vomiting/diarrhea x 1 day. States yesterday she started feeling "sick to her stomach" with nausea, vomiting, and diarrhea. States this morning she started feeling "not herself". States she just feels off denies. Denies abdominal pain, lightheadedness, dizziness, syncope, urinary symptoms, fever, chills, cough, nasal congestion. - Related Data Home Medications Medication Instructions Recorded Confirmed Medroxyprogesterone Acetate 150 mg IM Q84D 01/28/17 05/24/21 [Depo-Provera] FLUoxetine HCL [PROzac] 10 mg PO DAILY 05/03/21 05/24/21 Previous Rx's Medication Instructions Recorded Acetaminophen Tab [Tylenol] 650 mg PO Q6H #30 tab 05/27/21 Docusate [Colace] 100 mg PO BID #20 capsule 05/27/21 Ibuprofen [Motrin] 600 mg PO Q6HR PRN #40 tab 05/27/21 oxyCODONE HCL [OxyIR] 5 mg PO Q6H PRN 3 Days #10 tab 05/27/21 Allergies Allergy/AdvReac Type Severity Reaction Status Date / Time benzonatate Allergy Rash/Hives Verified 05/27/21 10:45 [From Anselmo Ridley] Review of Systems ROS Statement: Those systems with pertinent positive or pertinent negative responses have been documented in the HPI. ROS Other: All systems not noted in ROS Statement are negative. Past Medical History Past Medical History: No Reported History Additional Past Medical History / Comment(s): cholecystits History of Any Multi-Drug Resistant Organisms: None Reported Past Surgical History: No Surgical Hx Reported Past Anesthesia/Blood Transfusion Reactions: No Reported Reaction Additional Past Anesthesia/Blood Transfusion Reaction / Comment(s): NO PRIOR A NESTHESIA Past Psychological History: Anxiety Smoking Status: Never smoker - Past Family History Mother Family Medical History: No Reported History General Exam Limitations: no limitations General appearance: alert, in no apparent distress Head exam: Present: atraumatic, normocephalic, normal inspection Eye exam: Present: normal appearance, PERRL, EOMI. Absent: scleral icterus, conjunctival injection, periorbital swelling ENT exam: Present: normal exam, normal oropharynx, mucous membranes moist Respiratory exam: Present: normal lung sounds bilaterally. Absent: respiratory distress, wheezes, rales, rhonchi, stridor Cardiovascular Exam: Present: regular rate, normal rhythm, normal heart sounds. Absent: systolic murmur, diastolic murmur, rubs, gallop, clicks GI/Abdominal exam: Present: soft, normal bowel sounds. Absent: distended, tenderness, guarding, rebound, rigid Back exam: Absent: CVA tenderness (R), CVA tenderness (L) Neurological exam: Present: alert, oriented X3 Psychiatric exam: Present: normal affect, normal mood Skin exam: Present: warm, dry, intact, normal color. Absent: rash Course Vital Signs 06/30/24 06/30/24 06/30/24 13:32 17:06 17:25 Temperature 97.8 F 97.8 F Pulse Rate 100 68 80 Respiratory 16 18 18 Rate Blood Pressure 162/89 132/76 130/70 O2 Sat by Pulse 98 99 99 Oximetry EKG Findings - EKG Results: EKG: interpreted by ERMD (EKG reveals normal sinus rhythm with no ST changes. Ventricular rate 77 bpm, WV interval 130, QRS duration 96, QT/QTc 376/408) Medical Decision Making - Medical Decision Making Was pt. sent in by a medical professional or institution (, PA, BILLET STRAIGHTENER, urgent care, hospital, or fpc...) When possible be specific @ -No Did you speak to anyone other than the patient for history (EMS, parent, family, police, friend...)? What history was obtained from this source @ -No Did you review nursing and triage notes (agree or disagree)? Why? @ -I reviewed and agree with nursing and triage notes Were old charts reviewed (outside hosp., previous admission, EMS record, old EKG, old radiological studies, urgent care reports/EKG's, fpc records)? Report findings @ -No old charts were reviewed Differential Diagnosis (chest pain, altered mental status, abdominal pain women, abdominal pain men, vaginal bleeding, weakness, fever, dyspnea, syncope, headache, dizziness, GI bleed, back pain, seizure, CVA, palpatations, mental health, musculoskeletal)? @ -Differential Appendicitis, Cholecystitis, diverticulosis, ischemic bowel, pancreatitis, hepatitis, UTI, gastroenteritis, AAA, incarcerated hernia, bowel obstruction, constipation, inflammatory bowel, hepatitis, peptic ulcer disease, splenic infarction, perforated viscus, vulvitis, ovarian torsion, PID, kidney stone, placenta abruption, this is not meant to be an all-inclusive list EKG interpreted by me (3pts min.). @ -As above X-rays interpreted by me (1pt min.). @ -Chest x-ray reveals no acute process CT interpreted by me (1pt min.). @ -None done U/S interpreted by me (1pt. min.). @ -None done What testing was considered but not performed or refused? (CT, X-rays, U/S, labs)? Why? @ -None What meds were considered but not given or refused? Why? @ -None Did you discuss the management of the patient with other professionals (professionals i.e. , PA, BILLET STRAIGHTENER, lab, RT, psych nurse, dialysis social worker, inspector air carrier, teacher, tactical intelligence officer, case assembler)? Give summary @ -No Was smoking cessation discussed for >3mins.? @ -No Was critical care preformed (if so, how long)? @ -No Were there social determinants of health that impacted care today? How? (Homelessness, low income, unemployed, alcoholism, drug addiction, transportation, low edu. Level, literacy, decrease access to med. care, long-term, rehab)? @ -No Was there de-escalation of care discussed even if they declined (Discuss DNR or withdrawal of care, Hospice)? DNR status @ -No What co-morbidities impacted this encounter? (DM, HTN, Smoking, COPD, CAD, Cancer, CVA, ARF, Chemo, Hep., AIDS, mental health diagnosis, sleep apnea, morbid obesity)? @ -None Was patient admitted / discharged? Hospital course, mention meds given and route, prescriptions, significant lab abnormalities, going to OR and other pertinent info. @ -Discharged. This is a 24-year-old female presenting with nausea/vomiting/diarrhea for 1 day. Denies abdominal pain. Abdomen is soft and nontender to palpation. Neuro examination unremarkable. Patient was provided with IV fluids and antiemetics. EKG reveals normal sinus rhythm with no ST changes. Lab work remarkable for mildly elevated liver enzymes, otherwise unremarkable. Urine negative. Cepheid negative. Urinalysis reveals 1+ ketones. Chest x-ray reveals no acute process. Results discussed with patient. Upon reevaluation, patient reports improvement of symptoms. Patient is tolerating orals at time of discharge. Discussed symptoms likely due to v iral gastroenteritis. Appropriate return precautions and follow-up care discussed. This was discussed with my ED attending Dr. Corbin. Undiagnosed new problem with uncertain prognosis? @ -No Drug Therapy requiring intensive monitoring for toxicity (Heparin, Nitro, Insulin, Cardizem)? @ -No Were any procedures done? @ -No Diagnosis/symptom? @ -Gastroenteritis Acute, or Chronic, or Acute on Chronic? @ -Acute Uncomplicated (without systemic symptoms) or Complicated (systemic symptoms)? @ -Complicated Side effects of treatment? @ -No Exacerbation, Progression, or Severe Exacerbation? @ -No Poses a threat to life or bodily function? How? (Chest pain, [place], VA, pneumonia, PE, COPD, DKA, ARF, appy, cholecystitis, CVA, Diverticulitis, Homicidal, Suicidal, threat to staff... and all critical care pts) @ -Not at this time - Lab Data Result diagrams: 06/30/24 14:51 06/30/24 14:51 Lab Results 06/30/24 06/30/24 06/30/24 Range/Units 13:33 14:51 14:51 WBC 9.2 (3.8-10.6) k/uL RBC 5.31 (3.80-5.40) m/uL Hgb 15.5 (11.4-16.0) gm/dL Hct 45.5 (34.0-46.0) % MCV 85.7 (80.0-100.0) fL MCH 29.2 (25.0-35.0) pg MCHC 34.1 (31.0-37.0) g/dL RDW 13.1 (11.5-15.5) % Plt Count 319 (150-450) k/uL MPV 7.7 Neutrophils % 65 % Lymphocytes % 28 % Monocytes % 4 % Eosinophils % 2 % Basophils % 0 % Neutrophils # 6.0 (1.3-7.7) k/uL Lymphocytes # 2.6 (1.0-4.8) k/uL Monocytes # 0.4 (0-1.0) k/uL Eosinophils # 0.1 (0-0.7) k/uL Basophils # 0.0 (0-0.2) k/uL Sodium (137-145) mmol/L Potassium (3.5-5.1) mmol/L Chloride (98-107) mmol/L Carbon Dioxide (22-30) mmol/L Anion Gap mmol/L BUN (7-17) mg/dL Creatinine (0.52-1.04) mg/dL Est GFR (CKD-EPI)AfAm (>60 ml/min/1.73 sqM) Est GFR (CKD-EPI)NonAf (>60 ml/min/1.73 sqM) Glucose (74-99) mg/dL POC Glucose (mg/dL) 79 (70-110) mg/dL POC Glu Budget Accountant ID Florentino Avitia Plasma Lactic Acid Adrian (0.7-2.0) mmol/L Calcium (8.4-10.2) mg/dL Total Bilirubin (0.2-1.3) mg/dL AST (14-36) U/L ALT (4-34) U/L Alkaline Phosphatase (38-126) U/L Total Protein (6.3-8.2) g/dL Albumin (3.5-5.0) g/dL Lipase (23-300) U/L Urine Color Light Yellow Urine Appearance Clear (Clear) Urine pH 5.5 (5.0-8.0) Ur Specific Agar 1.024 (1.001-1.035) Urine Protein Negative (Negative) Urine Glucose (UA) Negative (Negative) Urine Ketones 1+ H (Negative) Urine Blood Moderate H (Negative) Urine Nitrite Negative (Negative) Urine Bilirubin Negative (Negative) Urine Urobilinogen <2.0 (<2.0) mg/dL Ur Leukocyte Esterase Negative (Negative) Urine RBC 1 (0-5) /hpf Urine WBC 1 (0-5) /hpf Ur Squamous Epith Cells <1 (0-4) /hpf Urine Mucus Moderate H (None) /hpf Urine HCG, Qual (Not Detectd) Influenza Type A (PCR) (Not Detectd) Influenza Type B (PCR) (Not Detectd) RSV (PCR) (Not Detectd) SARS-CoV-2 (PCR) (Not Detectd) 06/30/24 06/30/24 06/30/24 Range/Units 14:51 14:51 14:51 WBC (3.8-10.6) k/uL RBC (3.80-5.40) m/uL Hgb (11.4-16.0) gm/dL Hct (34.0-46.0) % MCV (80.0-100.0) fL MCH (25.0-35.0) pg MCHC (31.0-37.0) g/dL RDW (11.5-15.5) % Plt Count (150-450) k/uL MPV Neutrophils % % Lymphocytes % % Monocytes % % Eosinophils % % Basophils % % Neutrophils # (1.3-7.7) k/uL Lymphocytes # (1.0-4.8) k/uL Monocytes # (0-1.0) k/uL Eosinophils # (0-0.7) k/uL Basophils # (0-0.2) k/uL Sodium 138 (137-145) mmol/L Potassium 4.7 (3.5-5.1) mmol/L Chloride 101 (98-107) mmol/L Carbon Dioxide 27 (22-30) mmol/L Anion Gap 10 mmol/L BUN 11 (7-17) mg/dL Creatinine 0.75 (0.52-1.04) mg/dL Est GFR (CKD-EPI)AfAm >90 (>60 ml/min/1.73 sqM) Est GFR (CKD-EPI)NonAf >90 (>60 ml/min/1.73 sqM) Glucose 86 (74-99) mg/dL POC Glucose (mg/dL) (70-110) mg/dL POC Glu Budget Accountant ID Plasma Lactic Acid Adrian 1.3 (0.7-2.0) mmol/L Calcium 10.1 (8.4-10.2) mg/dL Total Bilirubin 0.7 (0.2-1.3) mg/dL AST 51 H (14-36) U/L ALT 88 H (4-34) U/L Alkaline Phosphatase 68 (38-126) U/L Total Protein 9.3 H (6.3-8.2) g/dL Albumin 5.5 H (3.5-5.0) g/dL Lipase 78 (23-300) U/L Urine Color Urine Appearance (Clear) Urine pH (5.0-8.0) Ur Specific Agar (1.001-1.035) Urine Protein (Negative) Urine Glucose (UA) (Negative) Urine Ketones (Negative) Urine Blood (Negative) Urine Nitrite (Negative) Urine Bilirubin (Negative) Urine Urobilinogen (<2.0) mg/dL Ur Leukocyte Esterase (Negative) Urine RBC (0-5) /hpf Urine WBC (0-5) /hpf Ur Squamous Epith Cells (0-4) /hpf Urine Mucus (None) /hpf Urine HCG, Qual Not Detected (Not Detectd) Influenza Type A (PCR) (Not Detectd) Influenza Type B (PCR) (Not Detectd) RSV (PCR) (Not Detectd) SARS-CoV-2 (PCR) (Not Detectd) 06/30/24 Range/Units 14:57 WBC (3.8-10.6) k/uL RBC (3.80-5.40) m/uL Hgb (11.4-16.0) gm/dL Hct (34.0-46.0) % MCV (80.0-100.0) fL MCH (25.0-35.0) pg MCHC (31.0-37.0) g/dL RDW (11.5-15.5) % Plt Count (150-450) k/uL MPV Neutrophils % % Lymphocytes % % Monocytes % % Eosinophils % % Basophils % % Neutrophils # (1.3-7.7) k/uL Lymphocytes # (1.0-4.8) k/uL Monocytes # (0-1.0) k/uL Eosinophils # (0-0.7) k/uL Basophils # (0-0.2) k/uL Sodium (137-145) mmol/L Potassium (3.5-5.1) mmol/L Chloride (98-107) mmol/L Carbon Dioxide (22-30) mmol/L Anion Gap mmol/L BUN (7-17) mg/dL Creatinine (0.52-1.04) mg/dL Est GFR (CKD-EPI)AfAm (>60 ml/min/1.73 sqM) Est GFR (CKD-EPI)NonAf (>60 ml/min/1.73 sqM) Glucose (74-99) mg/dL POC Glucose (mg/dL) (70-110) mg/dL POC Glu Budget Accountant ID Plasma Lactic Acid Adrian (0.7-2.0) mmol/L Calcium (8.4-10.2) mg/dL Total Bilirubin (0.2-1.3) mg/dL AST (14-36) U/L ALT (4-34) U/L Alkaline Phosphatase (38-126) U/L Total Protein (6.3-8.2) g/dL Albumin (3.5-5.0) g/dL Lipase (23-300) U/L Urine Color Urine Appearance (Clear) Urine pH (5.0-8.0) Ur Specific Agar (1.001-1.035) Urine Protein (Negative) Urine Glucose (UA) (Negative) Urine Ketones (Negative) Urine Blood (Negative) Urine Nitrite (Negative) Urine Bilirubin (Negative) Urine Urobilinogen (<2.0) mg/dL Ur Leukocyte Esterase (Negative) Urine RBC (0-5) /hpf Urine WBC (0-5) /hpf Ur Squamous Epith Cells (0-4) /hpf Urine Mucus (None) /hpf Urine HCG, Qual (Not Detectd) Influenza Type A (PCR) Not Detected (Not Detectd) Influenza Type B (PCR) Not Detected (Not Detectd) RSV (PCR) Not Detected (Not Detectd) SARS-CoV-2 (PCR) Not Detected (Not Detectd) Disposition Clinical Impression: Viral gastroenteritis Disposition: HOME SELF-CARE Condition: Stable Instructions (If sedation given, give patient instructions): Gastroenteritis (ED) Additional Instructions: Please return to the Emergency Department if symptoms worsen or any other concerns. Is patient prescribed a controlled substance at d/c from ED?: No Referrals: None,Stated [Primary Care Provider] - 1-2 days Time of Disposition: 17:18
[2024-06-30] MEDS: SODIUM CHLORIDE 0.9% 1,000 ML IV STA (15:03)
[2024-06-30] MEDS: ONDANSETRON 4 MG/2 ML VIAL IVP STA (15:15)
[2024-06-30 15:18] LABS: Basophils % (A) 0 %; Eosinophils # (A) 0.1 k/uL (0-0.7); Eosinophils % (A) 2 %; HCT 45.5 % (34.0-46.0); HGB 15.5 gm/dL (11.4-16.0); Lymphocytes # (A) 2.6 k/uL (1.0-4.8); Lymphocytes % (A) 28 %; MCH 29.2 pg (25.0-35.0); MCHC 34.1 g/dL (31.0-37.0); MCV 85.7 fL (80.0-100.0); Mean Platelet Volume 7.7; Monocytes # (A) 0.4 k/uL (0-1.0); Monocytes % (A) 4 %; Neutrophils % (A) 65 %; Platelet Count 319 k/uL (150-450); RBC 5.31 m/uL (3.80-5.40); RDW 13.1 % (11.5-15.5); WBC 9.2 k/uL (3.8-10.6)
[2024-06-30 15:22] LABS: Appearance,Urine Clear (Clear); Bilirubin,Urine Negative (Negative); Blood,Urine Moderate (Negative); Color,Urine Light Yellow; Glucose,Urine (UA) Negative (Negative); Ketones,Urine 1+ (Negative); Leukocyte Esterase,Urine Negative (Negative); Mucus,Urine Moderate /hpf; Nitrite,Urine Negative (Negative); PH, Urine 5.5 (5.0-8.0); Protein,Urine Negative (Negative); RBC,Urine 1 /hpf (0-5); Specific Gravity,Urine 1.024 (1.001-1.035); Squamous Epithelial Cell,Urine <1 /hpf (0-4); Urobilinogen,Urine <2.0 mg/dL (<2.0); WBC,Urine 1 /hpf (0-5)
[2024-06-30 15:23] LABS: ALT 88 U/L (4-34); African American GFR (CKD) >90 (>60 ml/min/1.73 sqM); Albumin 5.5 g/dL (3.5-5.0); Anion Gap 10 mmol/L; Blood Urea Nitrogen 11 mg/dL (7-17); Calcium 10.1 mg/dL (8.4-10.2); Carbon Dioxide 27 mmol/L (22-30); Chloride 101 mmol/L (98-107); Glucose 86 mg/dL (74-99); Lipase 78 U/L (23-300); Non-African American GFR(CKD) >90 (>60 ml/min/1.73 sqM); Sodium 138 mmol/L (137-145); Total Bilirubin 0.7 mg/dL (0.2-1.3); Total Protein 9.3 g/dL (6.3-8.2)
[2024-06-30 15:24] LABS: AST 51 U/L (14-36); Potassium 4.7 mmol/L (3.5-5.1)
[2024-06-30 15:25] LABS: Alkaline Phosphatase 68 U/L (38-126)
[2024-06-30 17:14] VITALS: RESP 18
[2024-06-30] MEDS: ONDANSETRON 4 MG ODT STARTER PACK 2 TAB BTL PO STA (17:22)
[2024-06-30 17:26] VITALS: BP 130/70; PULSE 80
== END 2024-06-30 17:26 | disposition home or self-care (01) ==
LOC: EC 13:08
DX: A08.4 Viral intestinal infection, unspecified (principal); Z11.52 Encounter for screening for COVID-19; Z88.8 Allergy status to other drugs, medicaments and biological substances
CPT/HCPCS: 36415; 93005; 80053; 83605; 83690; 85025; 81001; 81025; 87636; 99285; 96374; 96361; J2405; S0119

== ENCOUNTER 2024-10-09 21:49 | Emergency (ER) | payer BC ==
[2024-10-09 22:00] VITALS: RESP 18; TEMP 98
--- NOTE | 2024-10-09 22:26 | ED ---
General Adult HPI - General Chief complaint: Abdominal Pain Stated complaint: left abdominal pain, nausea Time Seen by Provider: 10/09/24 22:03 Source: patient, RN notes reviewed Mode of arrival: ambulatory - History of Present Illness Initial comments: 24-year-old female presents to the emergency department for evaluation of left lower abdominal pain. Patient reports this started 2 days ago. She admits that it is a sharp stabbing pain. She states that the pain is constant but there are times where the pain becomes more severe. She attempted to take ibuprofen yesterday without any relief. She denies any dysuria, hematuria. Admits to nausea without vomiting. Denies any known fever. Admits to increased frequency in her bowel movements. History of cholecystectomy, no other abdominal surgeries. - Related Data Home Medications Medication Instructions Recorded Confirmed Medroxyprogesterone Acetate 150 mg IM Q84D 01/28/17 05/24/21 [Depo-Provera] FLUoxetine HCL [PROzac] 10 mg PO DAILY 05/03/21 05/24/21 Previous Rx's Medication Instructions Recorded Acetaminophen Tab [Tylenol] 650 mg PO Q6H #30 tab 05/27/21 Docusate [Colace] 100 mg PO BID #20 capsule 05/27/21 Ibuprofen [Motrin] 600 mg PO Q6HR PRN #40 tab 05/27/21 oxyCODONE HCL [OxyIR] 5 mg PO Q6H PRN 3 Days #10 tab 05/27/21 Allergies Allergy/AdvReac Type Severity Reaction Status Date / Time benzonatate Allergy Rash/Hives Verified 10/09/24 22:00 [From Anselmo Ridley] Review of Systems ROS Statement: Those systems with pertinent positive or pertinent negative responses have been documented in the HPI. ROS Other: All systems not noted in ROS Statement are negative. Past Medical History Past Medical History: No Reported History Additional Past Medical History / Comment(s): cholecystits History of Any Multi-Drug Resistant Organisms: None Reported Past Surgical History: Cholecystectomy Past Anesthesia/Blood Transfusion Reactions: No Reported Reaction Additional Past Anesthesia/Blood Transfusion Reaction / Comment(s): NO PRIOR ANESTHESIA Past Psychological History: Anxiety Smoking Status: Never smoker Past Alcohol Use History: None Reported Past Drug Use History: None Reported - Past Family History Mother Family Medical History: No Reported History General Exam Limitations: no limitations General appearance: alert, in no apparent distress Head exam: Present: atraumatic, normocephalic, normal inspection Eye exam: Present: normal appearance, PERRL, EOMI. Absent: scleral icterus, conjunctival injection, periorbital swelling ENT exam: Present: normal exam, mucous membranes moist Neck exam: Present: normal inspection. Absent: tenderness, meningismus, lymphadenopathy Respiratory exam: Present: normal lung sounds bilaterally. Absent: respiratory distress, wheezes, rales, rhonchi, stridor Cardiovascular Exam: Present: regular rate, normal rhythm, normal heart sounds. Absent: systolic murmur, diastolic murmur, rubs, gallop, clicks GI/Abdominal exam: Present: soft, tenderness (LLQ), normal bowel sounds. Absent: distended, guarding, rebound, rigid Extremities exam: Present: normal inspection, full ROM, normal capillary refill. Absent: tenderness, pedal edema, joint swelling, calf tenderness Back exam: Present: normal inspection Neurological exam: Present: alert, oriented X3 Psychiatric exam: Present: normal affect, normal mood Skin exam: Present: warm, dry, intact, normal color. Absent: rash Course Vital Signs 10/09/24 10/10/24 21:58 01:00 Temperature 98.0 F Pulse Rate 100 90 Respiratory 18 18 Rate Blood Pressure 153/94 146/90 O2 Sat by Pulse 99 99 Oximetry Medical Decision Making - Medical Decision Making Was pt. sent in by a medical professional or institution (DARLING Yoder, CHEMIST ASSISTANT, urgent care, hospital, or halfway...) When possible be specific @ -No Did you speak to anyone other than the patient for history (EMS, parent, family, police, friend...)? What history was obtained from this source @ -No Did you review nursing and triage notes (agree or disagree)? Why? @ -I reviewed and agree with nursing and triage notes Were old charts reviewed (outside hosp., previous admission, EMS record, old EKG, old radiological studies, urgent care reports/EKG's, halfway records)? Report findings @ -No old charts were reviewed Differential Diagnosis (chest pain, altered mental status, abdominal pain women, abdominal pain men, vaginal bleeding, weakness, fever, dyspnea, syncope, headache, dizziness, GI bleed, back pain, seizure, CVA, palpatations, mental hea lth, musculoskeletal)? @ -Differential Abdominal Pain Women: Appendicitis, Cholecystitis, diverticulosis, ischemic bowel, pancreatitis, hepatitis, UTI, gastroenteritis, AAA, incarcerated hernia, bowel obstruction, constipation, inflammatory bowel, hepatitis, peptic ulcer disease, splenic infarction, perforated viscus, vulvitis, ovarian torsion, PID, kidney stone, placenta abruption, this is not meant to be an all-inclusive list EKG interpreted by me (3pts min.). @ -None X-rays interpreted by me (1pt min.). @ -None done CT interpreted by me (1pt min.). @ -CT of the abdomen pelvis shows mild prominence of the colon may be secondary to underdistention versus colitis U/S interpreted by me (1pt. min.). @ -Pelvic ultrasound shows a left sided ovarian cyst measuring 2.6 x 2.4 x 2.5 cm there is no evidence of ovarian torsion What testing was considered but not performed or refused? (CT, X-rays, U/S, labs)? Why? @ -None What meds were considered but not given or refused? Why? @ -None Did you discuss the management of the patient with other professionals (hero richard i.e. , PA, CHEMIST ASSISTANT, lab, RT, psych nurse, social service director, car dispatcher, teacher, grants officer, dependency case manager)? Give summary @ -No Was smoking cessation discussed for >3mins.? @ -No Was critical care preformed (if so, how long)? @ -No Were there social determinants of health that impacted care today? How? (Homelessness, low income, unemployed, alcoholism, drug addiction, transportation, low edu. Level, literacy, decrease access to med. care, alf, rehab)? @ -No Was there de-escalation of care discussed even if they declined (Discuss DNR or withdrawal of care, Hospice)? DNR status @ -No What co-morbidities impacted this encounter? (DM, HTN, Smoking, COPD, CAD, Cancer, CVA, ARF, Chemo, Hep., AIDS, mental health diagnosis, sleep apnea, morbid obesity)? @ -None Was patient admitted / discharged? Hospital course, mention meds given and route, prescriptions, significant lab abnormalities, going to OR and other pertinent info. @ -Discharge patient presented emergency department for evaluation of left sided abdominal pain. Laboratory studies obtained revealing no significant leukocytosis, hemoglobin within [id number]; CMP shows mild transaminitis which compared to prior is baseline for the patient. UA shows no evidence of infectious process, negative urine hCG. Pelvic ultrasound was obtained revealing a left-sided ovarian cyst measuring 2.6 x 2.4 x 2.5 cm with no evide nce of ovarian torsion. CT abdomen pelvis shows mild prominence within the colon which could represent colitis. Based on the patient's clinical picture I believe that this is likely the cause of her pain. Patient was provided medication for pain control in the emergency department and is feeling improved. Advised symptomatic treatment at this time. Advised close follow-up with her PCP and strict return precautions were discussed. She is understanding and agreeable with discharge plan. Patient stable at time of discharge. Case discussed with Dr. Corbin Undiagnosed new problem with uncertain prognosis? @ -No Drug Therapy requiring intensive monitoring for toxicity (Heparin, Nitro, Insulin, Cardizem)? @ -No Were any procedures done? @ -No Diagnosis/symptom? @ -Colitis, Acute, or Chronic, or Acute on Chronic? @ -Acute Uncomplicated (without systemic symptoms) or Complicated (systemic symptoms)? @ -Uncomplicated Side effects of treatment? @ -No Exacerbation, Progression, or Severe Exacerbation? @ -No Poses a threat to life or bodily function? How? (Chest pain, USA, CT, pneumonia, PE, COPD, DKA, ARF, appy, cholecystitis, CVA, Diverticulitis, Homicidal, Suicid al, threat to staff... and all critical care pts) @ -No - Lab Data Result diagrams: 10/09/24 22:30 10/09/24 22:30 Lab Results 10/09/24 10/09/24 10/09/24 Range/Units 22:30 22:30 22:46 WBC 8.0 (3.8-10.6) k/uL RBC 5.20 (3.80-5.40) m/uL Hgb 14.8 (11.4-16.0) gm/dL Hct 44.6 (34.0-46.0) % MCV 85.7 (80.0-100.0) fL MCH 28.4 (25.0-35.0) pg MCHC 33.1 (31.0-37.0) g/dL RDW 12.6 (11.5-15.5) % Plt Count 313 (150-450) k/uL MPV 7.4 Neutrophils % 61 % Lymphocytes % 27 % Monocytes % 5 % Eosinophils % 2 % Basophils % 1 % Neutrophils # 4.9 (1.3-7.7) k/uL Lymphocytes # 2.1 (1.0-4.8) k/uL Monocytes # 0.4 (0-1.0) k/uL Eosinophils # 0.2 (0-0.7) k/uL Basophils # 0.1 (0-0.2) k/uL Sodium 139 (137-145) mmol/L Potassium 4.6 (3.5-5.1) mmol/L Chloride 101 (98-107) mmol/L Carbon Dioxide 24 (22-30) mmol/L Anion Gap 14 mmol/L BUN 11 (7-17) mg/dL Creatinine 0.82 (0.52-1.04) mg/dL Est GFR (CKD-EPI)AfAm >90 (>60 ml/min/1.73 sqM) Est GFR (CKD-EPI)NonAf >90 (>60 ml/min/1.73 sqM) Glucose 82 (74-99) mg/dL Calcium 9.8 (8.4-10.2) mg/dL Total Bilirubin 0.5 (0.2-1.3) mg/dL AST 57 H (14-36) U/L ALT 70 H (4-34) U/L Alkaline Phosphatase 72 (38-126) U/L Total Protein 8.2 (6.3-8.2) g/dL Albumin 4.8 (3.5-5.0) g/dL Amylase 39 (30-110) U/L Lipase 89 (23-300) U/L Urine Color Colorless Urine Appearance Clear (Clear) Urine pH 7.5 (5.0-8.0) Ur Specific [place] 1.007 (1.001-1.035) Urine Protein Negative (Negative) Urine Glucose (UA) Negative (Negative) Urine Ketones Negative (Negative) Urine Blood Negative (Negative) Urine Nitrite Negative (Negative) Urine Bilirubin Negative (Negative) Urine Urobilinogen <2.0 (<2.0) mg/dL Ur Leukocyte Esterase Negative (Negative) Urine HCG, Qual (Not Detectd) 10/09/24 Range/Units 22:46 WBC (3.8-10.6) k/uL RBC (3.80-5.40) m/uL Hgb (11.4-16.0) gm/dL Hct (34.0-46.0) % MCV (80.0-100.0) fL MCH (25.0-35.0) pg MCHC (31.0-37.0) g/dL RDW (11.5-15.5) % Plt Count (150-450) k/uL MPV Neutrophils % % Lymphocytes % % Monocytes % % Eosinophils % % Basophils % % Neutrophils # (1.3-7.7) k/uL Lymphocytes # (1.0-4.8) k/uL Monocytes # (0-1.0) k/uL Eosinophils # (0-0.7) k/uL Basophils # (0-0.2) k/uL Sodium (137-145) mmol/L Potassium (3.5-5.1) mmol/L Chloride (98-107) mmol/L Carbon Dioxide (22-30) mmol/L Anion Gap mmol/L BUN (7-17) mg/dL Creatinine (0.52-1.04) mg/dL Est GFR (CKD-EPI)AfAm (>60 ml/min/1.73 sqM) Est GFR (CKD-EPI)NonAf (>60 ml/min/1.73 sqM) Glucose (74-99) mg/dL Calcium (8.4-10.2) mg/dL Total Bilirubin (0.2-1.3) mg/dL AST (14-36) U/L ALT (4-34) U/L Alkaline Phosphatase (38-126) U/L Total Protein (6.3-8.2) g/dL Albumin (3.5-5.0) g/dL Amylase (30-110) U/L Lipase (23-300) U/L Urine Color Urine Appearance (Clear) Urine pH (5.0-8.0) Ur Specific [place] (1.001-1.035) Urine Protein (Negative) Urine Glucose (UA) (Negative) Urine Ketones (Negative) Urine Blood (Negative) Urine Nitrite (Negative) Urine Bilirubin (Negative) Urine Urobilinogen (<2.0) mg/dL Ur Leukocyte Esterase (Negative) Urine HCG, Qual Not Detected (Not Detectd) Disposition Clinical Impression: Colitis, Ovarian cyst Disposition: HOME SELF-CARE Condition: Stable Instructions (If sedation given, give patient instructions): Ovarian Cyst (ED), Colitis (ED) Additional Instructions: Please utilize a gentle diet and advance as tolerated. Follow-up with your primary care provider. Return to the emergency department for new or worsening symptoms. Is patient prescribed a controlled substance at d/c from ED?: No Referrals: Mariela Lawrence NPC [Primary Care Provider] - 1-2 days
[2024-10-09] MEDS: KETOROLAC 15 MG/ML 1 ML VIAL IVP STA (22:41)
[2024-10-09] MEDS: SODIUM CHLORIDE 0.9% 1,000 ML IV ONE (22:41)
[2024-10-09] MEDS: ONDANSETRON 4 MG/2 ML VIAL IVP STA (22:41)
[2024-10-09 22:55] LABS: Basophils # (A) 0.1 k/uL (0-0.2); Basophils % (A) 1 %; Eosinophils # (A) 0.2 k/uL (0-0.7); Eosinophils % (A) 2 %; HCT 44.6 % (34.0-46.0); HGB 14.8 gm/dL (11.4-16.0); Lymphocytes # (A) 2.1 k/uL (1.0-4.8); Lymphocytes % (A) 27 %; MCH 28.4 pg (25.0-35.0); MCHC 33.1 g/dL (31.0-37.0); MCV 85.7 fL (80.0-100.0); Mean Platelet Volume 7.4; Monocytes # (A) 0.4 k/uL (0-1.0); Monocytes % (A) 5 %; Neutrophils # (A) 4.9 k/uL (1.3-7.7); Neutrophils % (A) 61 %; Platelet Count 313 k/uL (150-450); RDW 12.6 % (11.5-15.5)
[2024-10-09 23:06] LABS: Appearance,Urine Clear (Clear); Bilirubin,Urine Negative (Negative); Blood,Urine Negative (Negative); Color,Urine Colorless; Glucose,Urine (UA) Negative (Negative); Ketones,Urine Negative (Negative); Leukocyte Esterase,Urine Negative (Negative); Nitrite,Urine Negative (Negative); PH, Urine 7.5 (5.0-8.0); Protein,Urine Negative (Negative); Specific Gravity,Urine 1.007 (1.001-1.035); Urobilinogen,Urine <2.0 mg/dL (<2.0)
[2024-10-09 23:22] LABS: ALT 70 U/L (4-34); AST 57 U/L (14-36); African American GFR (CKD) >90 (>60 ml/min/1.73 sqM); Albumin 4.8 g/dL (3.5-5.0); Alkaline Phosphatase 72 U/L (38-126); Amylase 39 U/L (30-110); Anion Gap 14 mmol/L; Blood Urea Nitrogen 11 mg/dL (7-17); Calcium 9.8 mg/dL (8.4-10.2); Carbon Dioxide 24 mmol/L (22-30); Chloride 101 mmol/L (98-107); Glucose 82 mg/dL (74-99); Lipase 89 U/L (23-300); Non-African American GFR(CKD) >90 (>60 ml/min/1.73 sqM); Potassium 4.6 mmol/L (3.5-5.1); Sodium 139 mmol/L (137-145); Total Bilirubin 0.5 mg/dL (0.2-1.3); Total Protein 8.2 g/dL (6.3-8.2)
--- NOTE | 2024-10-10 00:24 | CT ---
EXAM: CT Abdomen and Pelvis With Intravenous Contrast CLINICAL HISTORY: ITS.REASON CT Reason: abdominal pain TECHNIQUE: Axial computed tomography images of the abdomen and pelvis with intravenous contrast. CTDI is 25.47 mGy and DLP is 1278.1 mGy-cm. This CT exam was performed using one or more of the following dose reduction techniques: automated exposure control, adjustment of the mA and/or kV according to patient size, and/or use of iterative reconstruction technique. COMPARISON: CT abdomen/pelvis on 05/06/2021 FINDINGS: Lung bases: Unremarkable. No mass. No consolidation. ABDOMEN: Liver: Hepatic steatosis. Hepatomegaly. Gallbladder and bile ducts: Cholecystectomy. No ductal dilation. Pancreas: Unremarkable. No mass. No ductal dilation. Spleen: Borderline size of the spleen. Adrenals: Unremarkable. No mass. Kidneys and ureters: Unremarkable. No hydronephrosis or obstructing ureteral stone. Stomach and bowel: Mild prominence of the galvan of the colon may be secondary to under distention versus colitis. Evaluation of the stomach is limited by underdistention. PELVIS: Appendix: Normal appendix. Bladder: Unremarkable. No mass. Reproductive: Left ovarian follicle or cyst. ABDOMEN and PELVIS: Intraperitoneal space: Unremarkable. No free air. No significant fluid collection. Bones/joints: Probable small bone island in the left acetabulum. No acute fracture. No dislocation. Soft tissues: Unremarkable. Vasculature: Unremarkable. No abdominal aortic aneurysm. Lymph nodes: Mildly prominent mesenteric lymph nodes may be reactive. IMPRESSION: 1. Mild prominence of the galvan of the colon may be secondary to under distention versus colitis. 2. Hepatic steatosis. Hepatomegaly.
--- NOTE | 2024-10-10 00:35 | US ---
EXAM: US Pelvis Transvaginal, Complete CLINICAL HISTORY: ITS.REASON US Reason: Lt pain, hx cyst TECHNIQUE: Real-time complete transvaginal pelvic ultrasound with image documentation. Transvaginal imaging was used for better evaluation of the endometrium and adnexa. COMPARISON: Pelvic ultrasound on 05/06/2021. FINDINGS: Uterus: Measures 5.9 x 2.8 x 3.9 cm. No focal myometrial lesion. Endometrium measures 7.2 mm. Right ovary: Measures 3.7 x 2.0 x 3.3 cm. Normal appearance with follicles. Normal color Doppler flow. Left ovary: Measures 2.8 x 3.3 x 2.7 cm. Left ovarian cyst measuring 2. 6 x 2.4 x 2.5 cm. Normal color Doppler flow. Other: No free fluid. No adnexal mass. IMPRESSION: Left ovarian cyst measuring 2.6 x 2.4 x 2.5 cm. No ovarian torsion.
[2024-10-10 01:09] VITALS: BP 146/90; PULSE 90
[2024-10-10] MEDS: ONDANSETRON 4 MG ODT STARTER PACK 2 TAB BTL PO STA (01:30)
[2024-10-10] MEDS: KETOROLAC 15 MG/ML 1 ML VIAL IVP STA (01:30)
== END 2024-10-10 01:31 | disposition home or self-care (01) ==
LOC: EC 21:49
DX: K52.9 Noninfective gastroenteritis and colitis, unspecified (principal); N83.202 Unspecified ovarian cyst, left side; Z88.8 Allergy status to other drugs, medicaments and biological substances
CPT/HCPCS: 36415; 80053; 82150; 83690; 85025; 81003; 81025; 93975; 76830; 74177; 99284; 96374; 96375; 96376; 96361 ×2; J2405; J1885; Q9967

== ENCOUNTER 2024-12-29 15:16 | Emergency (ER) | payer BC ==
[2024-12-29 15:25] VITALS: RESP 16
[2024-12-29 16:16] LABS: Basophils # (A) 0.05 10*3/uL (0.00-0.10); Basophils % (A) 0.5 %; Eosinophils # (A) 0.22 10*3/uL (0.04-0.35); Eosinophils % (A) 2.3 %; HGB 15.1 g/dL (12.0-15.0); Lymphocytes # (A) 2.58 10*3/uL (0.90-5.00); Lymphocytes % (A) 26.9 %; MCH 28.7 pg (27.0-32.0); MCHC 34.3 g/dL (32.0-37.0); MCV 83.5 fL (80.0-97.0); Mean Platelet Volume 9.1 fL (9.5-12.2); Monocytes # (A) 0.58 10*3/uL (0.20-1.00); Neutrophils # (A) 6.14 10*3/uL (1.80-7.70); Neutrophils % (A) 64.1 %; Platelet Count 357 10*3/uL (140-440); RBC 5.27 10*6/uL (4.10-5.20); RDW 13.1 % (11.5-14.5); WBC 9.59 10*3/uL (4.50-10.00)
[2024-12-29 16:20] LABS: Appearance,Urine Clear (Clear); Bilirubin,Urine Negative (Negative); Blood,Urine Negative (Negative); Color,Urine Colorless; Glucose,Urine (UA) Negative (Negative); Ketones,Urine Negative (Negative); Leukocyte Esterase,Urine Negative (Negative); Nitrite,Urine Negative (Negative); PH, Urine 6.5 (5.0-8.0); Protein,Urine Negative (Negative); Specific Gravity,Urine 1.004 (1.001-1.035); Urobilinogen,Urine <2.0 mg/dL (<2.0)
[2024-12-29 16:27] LABS: ALT 47 U/L (4-34); AST 35 U/L (14-36); African American GFR (CKD) >90 (>60 ml/min/1.73 sqM); Albumin 5.1 g/dL (3.5-5.0); Alkaline Phosphatase 82 U/L (38-126); Anion Gap 11 mmol/L; Blood Urea Nitrogen 8 mg/dL (7-17); Calcium 10.7 mg/dL (8.4-10.2); Carbon Dioxide 27 mmol/L (22-30); Chloride 100 mmol/L (98-107); Glucose 78 mg/dL (74-99); Non-African American GFR(CKD) >90 (>60 ml/min/1.73 sqM); Potassium 4.5 mmol/L (3.5-5.1); Sodium 138 mmol/L (137-145); Total Bilirubin 0.5 mg/dL (0.2-1.3); Total Protein 8.7 g/dL (6.3-8.2)
[2024-12-29 16:39] LABS: INR 0.9 (<1.2); Partial Thromboplastin Time 26.9 sec (22.0-30.0); Prothrombin Time 10.4 sec (10.0-12.5)
[2024-12-29 16:43] LABS: HCG,Quantitative Serum 26.4 mIU/mL
--- NOTE | 2024-12-29 17:06 | ED ---
General Adult HPI - General Chief complaint: Vaginal Bleeding Stated complaint: Vaginal Spotting/Positive Time Seen by Provider: 12/29/24 15:35 Source: patient, RN notes reviewed, old records reviewed Mode of arrival: ambulatory Limitations: no limitations - History of Present Illness Initial comments: 24-year-old female presents emergency department complaining of one-time episode of spotting yesterday. Believes she is very early on in . Last menstrual period was around November 29. That would have been 4 weeks ago. Ther efore is likely 2 to 3 weeks old that the latest. She denies any recurrent episodes. Denies any abdominal pain. Has no other symptoms for has not yet followed up with an DOOR FURRING INSTALLER. Presents for further evaluation at this time.States she took a test earlier this week and was positive. Presents concern. No medical issues. G1, P0. - Related Data Home Medications Medication Instructions Recorded Confirmed Medroxyprogesterone Acetate 150 mg IM Q84D 01/28/17 05/24/21 [Depo-Provera] FLUoxetine HCL [PROzac] 10 mg PO DAILY 05/03/21 05/24/21 Previous Rx's Medication Instructions Recorded Acetaminophen Tab [Tylenol] 650 mg PO Q6H #30 tab 05/27/21 Docusate [Colace] 100 mg PO BID #20 capsule 05/27/21 Ibuprofen [Motrin] 600 mg PO Q6HR PRN #40 tab 05/27/21 oxyCODONE HCL [OxyIR] 5 mg PO Q6H PRN 3 Days #10 tab 05/27/21 Allergies Allergy/AdvReac Type Severity Reaction Status Date / Time benzonatate Allergy Rash/Hives Verified 12/29/24 15:24 [From Anselmo Ridley] Review of Systems ROS Statement: Those systems with pertinent positive or pertinent negative responses have been documented in the HPI. Review of Systems: CONST: Denies fever EYES: Denies blurry vision ENT: Denies nasal congestion C/V: Denies Chest pain RESP: Denies shortness of breath GI: Denies abdominal pain : Denies dysuria SKIN: Denies rash. MSK: Denies joint pain. NEURO: Denies headache ROS Other: All systems not noted in ROS Statement are negative. Past Medical History Past Medical History: No Reported History Additional Past Medical History / Comment(s): cholecystits History of Any Multi-Drug Resistant Organisms: None Reported Past Surgical History: Cholecystectomy Past Anesthesia/Blood Transfusion Reactions: No Reported Reaction Additional Past Anesthesia/Blood Transfusion Reaction / Comment(s): NO PRIOR ANESTHESIA Past Psychological History: Anxiety Smoking Status: Never smoker Past Alcohol Use History: None Reported Past Drug Use History: None Reported - Past Family History Mother Family Medical History: No Reported History General Exam - General Exam Comments Initial Comments: General: Appears in no acute distress. HEAD: Normal with no signs of head trauma. EYES:, ENT: Hearing grossly intact, normal oropharynx. RESPIRATORY: Clear breath sounds bilaterally. No wheezes, rales, or rhonchi. C/V: Regular rate and rhythm. S1 and S2 auscultated, no edema, peripheral pulses 2+ and intact throughout ABD: Abd is soft, nontender, nondistended EXT: No obvious deformity SKIN: No rashes or lesions observed on exposed skin. NEURO: Alert and orient x 4. Limitations: no limitations Course Vital Signs 12/29/24 12/29/24 15:21 17:23 Temperature 98.0 F 98.6 F Pulse Rate 84 81 Respiratory 16 16 Rate Blood Pressure 170/103 127/91 O2 Sat by Pulse 98 99 Oximetry Medical Decision Making - Medical Decision Making Was pt. sent in by a medical professional or institution (, PA, OBJECT ORIENTED PROGRAMMER, urgent care, hospital, or senior living...) When possible be specific @ -No Did you speak to anyone other than the patient for history (EMS, parent, family, police, friend...)? What history was obtained from this source @ -No Did you review nursing and triage notes (agree or disagree)? Why? @ -I reviewed and agree with nursing and triage notes Were old charts reviewed (outside hosp., previous admission, EMS record, old EKG, old radiological studies, urgent care reports/EKG's, senior living records)? Report findings @ -No old charts were reviewed Differential Diagnosis (chest pain, altered mental status, abdominal pain women, abdominal pain men, vaginal bleeding, weakness, fever, dyspnea, syncope, he adache, dizziness, GI bleed, back pain, seizure, CVA, palpatations, mental health, musculoskeletal)? @ -Miscarriage, vaginal bleeding in early , UTI. This list is not all inclusive. EKG interpreted by me (3pts min.). @ -None done X-rays interpreted by me (1pt min.). @ -None done CT interpreted by me (1pt min.). @ -None done U/S interpreted by me (1pt. min.). @ -None done What testing was considered but not performed or refused? (CT, X-rays, U/S, labs)? Why? @ -Considered performing a pelvic ultrasound for the new however it is extremely early on and very unlikely to show anything considering the patient's low beta-hCG and estimated gestational age by LMP being 2 to 3 weeks. We will defer at this time. What meds were considered but not given or refused? Why? @ -None Did you discuss the management of the patient with other professionals (professionals i.e. , PA, OBJECT ORIENTED PROGRAMMER, lab, RT, psych nurse, professor of social work, propagator, teacher, traffic maintenance officer, case management manager)? Give summary @ -No Was smoking cessation discussed for >3mins.? @ -No Was critical care preformed (if so, how long)? @ -No Were there social determinants of health that impacted care today? How? (Homeles sness, low income, unemployed, alcoholism, drug addiction, transportation, low edu. Level, literacy, decrease access to med. care, [facility], rehab)? @ -No Was there de-escalation of care discussed even if they declined (Discuss DNR or withdrawal of care, Hospice)? DNR status @ -No What co-morbidities impacted this encounter? (DM, HTN, Smoking, COPD, CAD, Cancer, CVA, ARF, Chemo, Hep., AIDS, mental health diagnosis, sleep apnea, morbid obesity)? @ -None Was patient admitted / discharged? Hospital course, mention meds given and route, prescriptions, significant lab abnormalities, going to OR and other pertinent info. @ -Presents for vaginal spotting in yesterday. G1, P0. LMP approx imately 3 to 4 weeks ago. This would kirstie a very early . Discussed with the patient we will not obtain an ultrasound at this time as she has no symptoms currently. We will obtain a quantitative beta-hCG as well as labs. She was in agreement this plan. Vital signs are within acceptable limits. Patient is Rh+ and therefore does not require RhoGAM. Labs otherwise are within acceptable limits. Quantitative hCG is 26.4. This is below the threshold for seeing any form of on ultrasound. I discussed the results with the patient. We agreed to defer the ultrasound at this time. I recommended follow-up with DOOR FURRING INSTALLER as well as PCP within the next week. She can follow-up with PCP in the next 1 to 3 days. Recommended return if any worsening symptoms. Patient will be given a prescription to obtain repeat lab draw on 01/02 or later for repeat quantitative beta-hCG. Patient was in agreement this plan. I instructed the patient to follow up with their PCP in the next 1-3 days. I explained that the patient should return to the emergency department if they experience any worsening symptoms. Strict return precautions were discussed with the patient. The patient expressed understanding of these instructions. I answered all questions that the patient had. The patient was discharged home in good condition with their prescriptions and follow up information. Undiagnosed new problem with uncertain prognosis? @ -No Drug Therapy requiring intensive monitoring for toxicity (Heparin, Nitro, Insulin, Cardizem)? @ -No Were any procedures done? @ -No Diagnosis/symptom? @ -Vaginal bleeding in early Acute, or Chronic, or Acute on Chronic? @ -Acute Uncomplicated (without systemic symptoms) or Complicated (systemic symptoms)? @ -Uncomplicated Side effects of treatment? @ -No Exacerbation, Progression, or Severe Exacerbation? @ -No Poses a threat to life or bodily function? How? (Chest pain, [place], [place], pneumonia, PE, COPD, DKA, ARF, appy, cholecystitis, CVA, Diverticulitis, Homicidal, Suicidal, threat to staff... and all critical care pts) @ -Unlikely at this time - Lab Data Result diagrams: 12/29/24 15:50 12/29/24 15:50 Lab Results 12/29/24 12/29/24 12/29/24 Range/Units 15:50 15:50 15:50 WBC 9.59 (4.50-10.00) 10*3/uL RBC 5.27 H (4.10-5.20) 10*6/uL Hgb 15.1 H (12.0-15.0) g/dL Hct 44.0 (37.2-46.3) % MCV 83.5 (80.0-97.0) fL MCH 28.7 (27.0-32.0) pg MCHC 34.3 (32.0-37.0) g/dL Plt Count 357 (140-440) 10*3/uL MPV 9.1 L (9.5-12.2) fL Immature Gran % (Auto) 0.2 % Neutrophils % 64.1 % Lymphocytes % 26.9 % Monocytes % 6.0 % Eosinophils % 2.3 % Basophils % 0.5 % Immature Gran # 0.02 (0.00-0.04) 10*3/uL Neutrophils # 6.14 (1.80-7.70) 10*3/uL Lymphocytes # 2.58 (0.90-5.00) 10*3/uL Monocytes # 0.58 (0.20-1.00) 10*3/uL Eosinophils # 0.22 (0.04-0.35) 10*3/uL Basophils # 0.05 (0.00-0.10) 10*3/uL PT 10.4 (10.0-12.5) sec INR 0.9 (<1.2) APTT 26.9 (22.0-30.0) sec Sodium (137-145) mmol/L Potassium (3.5-5.1) mmol/L Chloride (98-107) mmol/L Carbon Dioxide (22-30) mmol/L Anion Gap mmol/L BUN (7-17) mg/dL Creatinine (0.52-1.04) mg/dL Est GFR (CKD-EPI)AfAm (>60 ml/min/1.73 sqM) Est GFR (CKD-EPI)NonAf (>60 ml/min/1.73 sqM) Glucose (74-99) mg/dL Calcium (8.4-10.2) mg/dL Total Bilirubin (0.2-1.3) mg/dL AST (14-36) U/L ALT (4-34) U/L Alkaline Phosphatase (38-126) U/L Total Protein (6.3-8.2) g/dL Albumin (3.5-5.0) g/dL HCG, Quant mIU/mL Urine Color Colorless Urine Appearance Clear (Clear) Urine pH 6.5 (5.0-8.0) Ur Specific Dameron 1.004 (1.001-1.035) Urine Protein Negative (Negative) Urine Glucose (UA) Negative (Negative) Urine Ketones Negative (Negative) Urine Blood Negative (Negative) Urine Nitrite Negative (Negative) Urine Bilirubin Negative (Negative) Urine Urobilinogen <2.0 (<2.0) mg/dL Ur Leukocyte Esterase Negative (Negative) Blood Type Blood Type Confirm Blood Type Recheck Bld Type Recheck Status Antibody Screen Spec Expiration Date 12/29/24 12/29/24 12/29/24 Range/Units 15:50 15:55 16:22 WBC (4.50-10.00) 10*3/uL RBC (4.10-5.20) 10*6/uL Hgb (12.0-15.0) g/dL Hct (37.2-46.3) % MCV (80.0-97.0) fL MCH (27.0-32.0) pg MCHC (32.0-37.0) g/dL Plt Count (140-440) 10*3/uL MPV (9.5-12.2) fL Immature Gran % (Auto) % Neutrophils % % Lymphocytes % % Monocytes % % Eosinophils % % Basophils % % Immature Gran # (0.00-0.04) 10*3/uL Neutrophils # (1.80-7.70) 10*3/uL Lymphocytes # (0.90-5.00) 10*3/uL Monocytes # (0.20-1.00) 10*3/uL Eosinophils # (0.04-0.35) 10*3/uL Basophils # (0.00-0.10) 10*3/uL PT (10.0-12.5) sec INR (<1.2) APTT (22.0-30.0) sec Sodium 138 (137-145) mmol/L Potassium 4.5 (3.5-5.1) mmol/L Chloride 100 (98-107) mmol/L Carbon Dioxide 27 (22-30) mmol/L Anion Gap 11 mmol/L BUN 8 (7-17) mg/dL Creatinine 0.77 (0.52-1.04) mg/dL Est GFR (CKD-EPI)AfAm >90 (>60 ml/min/1.73 sqM) Est GFR (CKD-EPI)NonAf >90 (>60 ml/min/1.73 sqM) Glucose 78 (74-99) mg/dL Calcium 10.7 H (8.4-10.2) mg/dL Total Bilirubin 0.5 (0.2-1.3) mg/dL AST 35 (14-36) U/L ALT 47 H (4-34) U/L Alkaline Phosphatase 82 (38-126) U/L Total Protein 8.7 H (6.3-8.2) g/dL Albumin 5.1 H (3.5-5.0) g/dL HCG, Quant 26.4 mIU/mL Urine Color Urine Appearance (Clear) Urine pH (5.0-8.0) Ur Specific Dameron (1.001-1.035) Urine Protein (Negative) Urine Glucose (UA) (Negative) Urine Ketones (Negative) Urine Blood (Negative) Urine Nitrite (Negative) Urine Bilirubin (Negative) Urine Urobilinogen (<2.0) mg/dL Ur Leukocyte Esterase (Negative) Blood Type O Positive Blood Type Confirm O Positive Blood Type Recheck No Previous Record Bld Type Recheck Status CABO Indicated Antibody Screen NEGATIVE Spec Expiration Date 01/01/20252354 Disposition Clinical Impression: Vaginal bleeding affecting early Disposition: HOME SELF-CARE Condition: Good Instructions (If sedation given, give patient instructions): Threatened Miscarriage (ED), Non-Threatening First Trimester Vaginal Bleed (ED) Additional Instructions: Your diagnosis is vaginal bleeding in early . At worst case, this could be an early miscarriage but it is impossible to know today as you are extremely early in her , based on last menstrual period your is extremely early, likely less than 3 weeks. Quantitative beta-hCG today is 26.4. You need to repeat lab draw early next week on 01/02 or later. Ensure this value is increasing. Return to the ER if any concerns or cannot get in and get repeat lab draws or cannot get in and see an DOOR FURRING INSTALLER. Return to the ER if any worsening vaginal bleeding, abdominal cramping or pain. If you have any concerns return to the ER. Follow-up with your PCP and DOOR FURRING INSTALLER. Is patient prescribed a controlled substance at d/c from ED?: No Referrals: None,Stated [Primary Care Provider] - 1-2 days Abe Bianchi MD [STAFF PHYSICIAN] - 1-2 days Forms: Area PCPs Time of Disposition: 17:05
[2024-12-29 17:30] VITALS: BP 127/91; PULSE 81; TEMP 98.6
== END 2024-12-29 17:30 | disposition home or self-care (01) ==
LOC: EC 15:16
DX: O20.9 Hemorrhage in early pregnancy, unspecified (principal); Z88.8 Allergy status to other drugs, medicaments and biological substances; Z3A.01 Less than 8 weeks gestation of pregnancy
CPT/HCPCS: 36415; 80053; 81003; 84702; 85025; 85610; 85730; 86850; 86900; 86901; 99284

== ENCOUNTER → 2025-01-02 | Outpatient (CLI) | payer BC | END | disposition home or self-care (01) | LOC: LABWHC1 10:19 | PROVIDERS: ATTEND Student in an Organized Health Care Education/Training Program | DX: O20.9 Hemorrhage in early pregnancy, unspecified (principal); Z3A.00 Weeks of gestation of pregnancy not specified | CPT/HCPCS: 36415; 84702 ==

== ENCOUNTER 2025-01-10 11:43 | Emergency (ER) | payer BC ==
--- NOTE | 2025-01-10 12:22 | ED ---
General Adult HPI - General Chief complaint: Vaginal Bleeding Stated complaint: Vaginal bleeding(4 weeks preg) Time Seen by Provider: 01/10/25 11:45 Source: patient, RN notes reviewed Mode of arrival: ambulatory Limitations: no limitations - History of Present Illness Initial comments: This is a 24-year-old female with no past medical conditions, [id number], presenting to the emergency department approximately 4 weeks gestation with concerns of vaginal bleeding that started this morning. Patient states that she noticed that she had a dark brown vaginal spotting and while using the bathroom prior to arrival the bleeding changed to bright red in color. She denies passage of clots, pelvic cramping, nausea or vomiting or urinary complaints. Patient states that her last menstrual cycle was in the beginning of November. Patient did present to the emergency department a few weeks ago with vaginal bleeding and had a repeat hCG level 4 days after that which increased. Patient has not yet had an ultrasound for this and has not followed up with OB. - Related Data Home Medications Medication Instructions Recorded Confirmed Medroxyprogesterone Acetate 150 mg IM Q84D 01/28/17 05/24/21 [Depo-Provera] FLUoxetine HCL [PROzac] 10 mg PO DAILY 05/03/21 05/24/21 Previous Rx's Medication Instructions Recorded Acetaminophen Tab [Tylenol] 650 mg PO Q6H #30 tab 05/27/21 Docusate [Colace] 100 mg PO BID #20 capsule 05/27/21 Ibuprofen [Motrin] 600 mg PO Q6HR PRN #40 tab 05/27/21 oxyCODONE HCL [OxyIR] 5 mg PO Q6H PRN 3 Days #10 tab 05/27/21 Allergies Allergy/AdvReac Type Severity Reaction Status Date / Time benzonatate Allergy Rash/Hives Verified 01/10/25 11:48 [From Anselmo Ridley] Review of Systems ROS Statement: Those systems with pertinent positive or pertinent negative responses have been documented in the HPI. ROS Other: All systems not noted in ROS Statement are negative. Past Medical History Past Medical History: No Reported History Additional Past Medical History / Comment(s): cholecystits History of Any Multi-Drug Resistant Organisms: None Reported Past Surgical History: Cholecystectomy Past Anesthesia/Blood Transfusion Reactions: No Reported Reaction Additional Past Anesthesia/Blood Transfusion Reaction / Comment(s): NO PRIOR ANESTHESIA Past Psychological History: Anxiety Smoking Status: Never smoker Past Alcohol Use History: None Reported Past Drug Use History: None Reported - Past Family History Mother Family Medical History: No Reported History General Exam Limitations: no limitations General appearance: alert, in no apparent distress Neck exam: Present: normal inspection. Absent: tenderness, meningismus, l ymphadenopathy Respiratory exam: Present: normal lung sounds bilaterally. Absent: respiratory distress, wheezes, rales, rhonchi, stridor Cardiovascular Exam: Present: regular rate, normal rhythm, normal heart sounds. Absent: systolic murmur, diastolic murmur, rubs, gallop, clicks GI/Abdominal exam: Present: soft, normal bowel sounds. Absent: distended, tenderness, guarding, rebound, rigid Extremities exam: Present: normal inspection, full ROM, normal capillary refill. Absent: tenderness, pedal edema, joint swelling, calf tenderness Back exam: Present: normal inspection. Absent: CVA tenderness (R), CVA tenderness (L) Course Vital Signs 01/10/25 01/10/25 01/10/25 11:46 13:46 14:15 Temperature 97.8 F 98.1 F 98 F Pulse Rate 89 103 H 90 Respiratory 18 16 16 Rate Blood Pressure 143/91 142/88 134/86 O2 Sat by Pulse 100 100 100 Oximetry Medical Decision Making - Medical Decision Making Was pt. sent in by a medical professional or institution (DARLING Yoder, MEMBER SERVICES REPRESENTATIVE, urgent care, hospital, or [place] health care facility...) When possible be specific @ -No Did you speak to anyone other than the patient for history (EMS, parent, family, police, friend...)? What history was obtained from this source @ -No Did you review nursing and triage notes (agree or disagree)? Why? @ -I reviewed and agree with nursing and triage notes Were old charts reviewed (outside hosp., previous admission, EMS record, old EKG, old radiological studies, urgent care reports/EKG's, [place] health care facility records)? Report findings @ -I reviewed patient's outpatient lab test from 01/02/2025 revealed an hCG level of 36. Additionally, hCG level 12/29 is 26. Differential Diagnosis (chest pain, altered mental status, abdominal pain women, abdominal pain men, vaginal bleeding, weakness, fever, dyspnea, syncope, headache, dizziness, GI bleed, back pain, seizure, CVA, palpatations, mental health, musculoskeletal)? @ -Differential Vaginal Bleeding: Spontaneous , threatened , molar , ectopic , bloody show, incompetent cervix, abruptioplacenta, placenta previa, uterine rupture, dysfunctional uterine bleeding, hemorrhage, uterine fibroids, this is not meant to be an all-inclusive list. EKG interpreted by me (3pts min.). @ none X-rays interpreted by me (1pt min.). @ -None done CT interpreted by me (1pt min.). @ -None done U/S interpreted by me (1pt. min.). @ -Transabdominal and transvaginal ultrasound reveals a left ovarian cyst measuring 2.8 cm What testing was considered but not performed or refused? (CT, X-rays, U/S, labs)? Why? @ -None What meds were considered but not given or refused? Why? @ -None Did you discuss the management of the patient with other professionals (professionals i.e. , PA, MEMBER SERVICES REPRESENTATIVE, lab, RT, psych nurse, social welfare administrator, carpenter packing, teacher, ordnance officer, case preparer and liner)? Give summary @ -No Was smoking cessation discussed for >3mins.? @ -No Was critical care preformed (if so, how long)? @ -No Were there social determinants of health that impacted care today? How? (Homeles sness, low income, unemployed, alcoholism, drug addiction, transportation, low edu. Level, literacy, decrease access to med. care, intermediate, rehab)? @ -No Was there de-escalation of care discussed even if they declined (Discuss DNR or withdrawal of care, Hospice)? DNR status @ -No What co-morbidities impacted this encounter? (DM, HTN, Smoking, COPD, CAD, Cancer, CVA, ARF, Chemo, Hep., AIDS, mental health diagnosis, sleep apnea, morbid obesity)? @ -None Was patient admitted / discharged? Hospital course, mention meds given and route, prescriptions, significant lab abnormalities, going to OR and other pertinent info. @ - Discharge. 24-year-old female presenting with vaginal bleeding during . hCG level today of 44.3. CBC, CMP, urinalysis unremarkable. Ultrasound reveals a left ovarian cyst measuring 2.8 cm with no evidence of intrauterine . Patient provided with prescription to repeat CT testing in 2 days recommend repeat ultrasound testing in 1 week. At this time patient stable for discharge. Return parameters discussed. Case discussed my attending Dr. Yuen. Undiagnosed new problem with uncertain prognosis? @ -No Drug Therapy requiring intensive monitoring for toxicity (Heparin, Nitro, Insulin, Cardizem)? @ -No Were any procedures done? @ -No Diagnosis/symptom? @ -Ovarian cyst, abnormal uterine bleeding, positive hCG Acute, or Chronic, or Acute on Chronic? @ -Acute Uncomplicated (without systemic symptoms) or Complicated (systemic symptoms)? @ -Uncomplicated Side effects of treatment? @ -No Exacerbation, Progression, or Severe Exacerbation? @ -No Poses a threat to life or bodily function? How? (Chest pain, USA, [place], pneumonia, PE, COPD, DKA, ARF, appy, cholecystitis, CVA, Diverticulitis, Homicidal, Suicidal, threat to staff... and all critical care pts) @ -No - Lab Data Result diagrams: 01/10/25 12:12 01/10/25 12:12 Lab Results 01/10/25 01/10/25 01/10/25 Range/Units 12:12 12:12 12:16 WBC 9.58 (4.50-10.00) 10*3/uL RBC 4.67 (4.10-5.20) 10*6/uL Hgb 13.3 (12.0-15.0) g/dL Hct 38.9 (37.2-46.3) % MCV 83.3 (80.0-97.0) fL MCH 28.5 (27.0-32.0) pg MCHC 34.2 (32.0-37.0) g/dL Plt Count 337 (140-440) 10*3/uL MPV 9.1 L (9.5-12.2) fL Immature Gran % (Auto) 0.4 % Neutrophils % 58.3 % Lymphocytes % 33.6 % Monocytes % 5.0 % Eosinophils % 2.2 % Basophils % 0.5 % Immature Gran # 0.04 (0.00-0.04) 10*3/uL Neutrophils # 5.58 (1.80-7.70) 10*3/uL Lymphocytes # 3.22 (0.90-5.00) 10*3/uL Monocytes # 0.48 (0.20-1.00) 10*3/uL Eosinophils # 0.21 (0.04-0.35) 10*3/uL Basophils # 0.05 (0.00-0.10) 10*3/uL Sodium 140 (137-145) mmol/L Potassium 4.7 (3.5-5.1) mmol/L Chloride 104 (98-107) mmol/L Carbon Dioxide 25 (22-30) mmol/L Anion Gap 11 mmol/L BUN 7 (7-17) mg/dL Creatinine 0.71 (0.52-1.04) mg/dL Est GFR (CKD-EPI)AfAm >90 (>60 ml/min/1.73 sqM) Est GFR (CKD-EPI)NonAf >90 (>60 ml/min/1.73 sqM) Glucose 94 (74-99) mg/dL Calcium 9.7 (8.4-10.2) mg/dL Total Bilirubin 0.5 (0.2-1.3) mg/dL AST 33 (14-36) U/L ALT 50 H (4-34) U/L Alkaline Phosphatase 79 (38-126) U/L Total Protein 7.8 (6.3-8.2) g/dL Albumin 4.7 (3.5-5.0) g/dL HCG, Quant 44.3 mIU/mL Urine Color Colorless Urine Appearance Clear (Clear) Urine pH 6.0 (5.0-8.0) Ur Specific [place] 1.001 (1.001-1.035) Urine Protein Negative (Negative) Urine Glucose (UA) Negative (Negative) Urine Ketones Negative (Negative) Urine Blood Moderate H (Negative) Urine Nitrite Negative (Negative) Urine Bilirubin Negative (Negative) Urine Urobilinogen <2.0 (<2.0) mg/dL Ur Leukocyte Esterase Negative (Negative) Urine WBC <1 (0-5) /hpf Ur Squamous Epith Cells <1 (0-4) /hpf Blood Type Blood Type Recheck Bld Type Recheck Status 01/10/25 Range/Units 12:25 WBC (4.50-10.00) 10*3/uL RBC (4.10-5.20) 10*6/uL Hgb (12.0-15.0) g/dL Hct (37.2-46.3) % MCV (80.0-97.0) fL MCH (27.0-32.0) pg MCHC (32.0-37.0) g/dL Plt Count (140-440) 10*3/uL MPV (9.5-12.2) fL Immature Gran % (Auto) % Neutrophils % % Lymphocytes % % Monocytes % % Eosinophils % % Basophils % % Immature Gran # (0.00-0.04) 10*3/uL Neutrophils # (1.80-7.70) 10*3/uL Lymphocytes # (0.90-5.00) 10*3/uL Monocytes # (0.20-1.00) 10*3/uL Eosinophils # (0.04-0.35) 10*3/uL Basophils # (0.00-0.10) 10*3/uL Sodium (137-145) mmol/L Potassium (3.5-5.1) mmol/L Chloride (98-107) mmol/L Carbon Dioxide (22-30) mmol/L Anion Gap mmol/L BUN (7-17) mg/dL Creatinine (0.52-1.04) mg/dL Est GFR (CKD-EPI)AfAm (>60 ml/min/1.73 sqM) Est GFR (CKD-EPI)NonAf (>60 ml/min/1.73 sqM) Glucose (74-99) mg/dL Calcium (8.4-10.2) mg/dL Total Bilirubin (0.2-1.3) mg/dL AST (14-36) U/L ALT (4-34) U/L Alkaline Phosphatase (38-126) U/L Total Protein (6.3-8.2) g/dL Albumin (3.5-5.0) g/dL HCG, Quant mIU/mL Urine Color Urine Appearance (Clear) Urine pH (5.0-8.0) Ur Specific [place] (1.001-1.035) Urine Protein (Negative) Urine Glucose (UA) (Negative) Urine Ketones (Negative) Urine Blood (Negative) Urine Nitrite (Negative) Urine Bilirubin (Negative) Urine Urobilinogen (<2.0) mg/dL Ur Leukocyte Esterase (Negative) Urine WBC (0-5) /hpf Ur Squamous Epith Cells (0-4) /hpf Blood Type O Positive Blood Type Recheck O Pos Bld Type Recheck Status No Disposition Clinical Impression: Ovarian cyst, Abnormal uterine bleeding Disposition: HOME SELF-CARE Condition: Good Instructions (If sedation given, give patient instructions): Ovarian Cyst (ED) Additional Instructions: Please return to the Emergency Department if symptoms worsen or any other concerns. Is patient prescribed a controlled substance at d/c from ED?: No Referrals: None,Stated [Primary Care Provider] - 1-2 days Time of Disposition: 13:54
[2025-01-10 12:37] LABS: Basophils # (A) 0.05 10*3/uL (0.00-0.10); Basophils % (A) 0.5 %; Eosinophils # (A) 0.21 10*3/uL (0.04-0.35); Eosinophils % (A) 2.2 %; HCT 38.9 % (37.2-46.3); HGB 13.3 g/dL (12.0-15.0); Lymphocytes # (A) 3.22 10*3/uL (0.90-5.00); Lymphocytes % (A) 33.6 %; MCH 28.5 pg (27.0-32.0); MCHC 34.2 g/dL (32.0-37.0); MCV 83.3 fL (80.0-97.0); Monocytes # (A) 0.48 10*3/uL (0.20-1.00); Monocytes % (A) 5.0 %; Neutrophils # (A) 5.58 10*3/uL (1.80-7.70); Neutrophils % (A) 58.3 %; Platelet Count 337 10*3/uL (140-440); RBC 4.67 10*6/uL (4.10-5.20); RDW 13.4 % (11.5-14.5); WBC 9.58 10*3/uL (4.50-10.00)
[2025-01-10 12:47] LABS: Bilirubin,Urine Negative (Negative); Blood,Urine Moderate (Negative); Color,Urine Colorless; Glucose,Urine (UA) Negative (Negative); Ketones,Urine Negative (Negative); Leukocyte Esterase,Urine Negative (Negative); Nitrite,Urine Negative (Negative); PH, Urine 6.0 (5.0-8.0); Protein,Urine Negative (Negative); Specific Gravity,Urine 1.001 (1.001-1.035); Squamous Epithelial Cell,Urine <1 /hpf (0-4); Urobilinogen,Urine <2.0 mg/dL (<2.0); WBC,Urine <1 /hpf (0-5)
[2025-01-10 12:53] LABS: ALT 50 U/L (4-34); AST 33 U/L (14-36); African American GFR (CKD) >90 (>60 ml/min/1.73 sqM); Albumin 4.7 g/dL (3.5-5.0); Alkaline Phosphatase 79 U/L (38-126); Anion Gap 11 mmol/L; Blood Urea Nitrogen 7 mg/dL (7-17); Calcium 9.7 mg/dL (8.4-10.2); Carbon Dioxide 25 mmol/L (22-30); Chloride 104 mmol/L (98-107); Glucose 94 mg/dL (74-99); Non-African American GFR(CKD) >90 (>60 ml/min/1.73 sqM); Potassium 4.7 mmol/L (3.5-5.1); Sodium 140 mmol/L (137-145); Total Protein 7.8 g/dL (6.3-8.2)
[2025-01-10 13:09] LABS: HCG,Quantitative Serum 44.3 mIU/mL
--- NOTE | 2025-01-10 13:22 | US ---
EXAMINATION TYPE: Transabdominal DATE OF EXAM: 01/10/2025 12:54 PM COMPARISON: NONE CLINICAL INDICATION: Female, 24 years old with history of 4 weeks, spotting; TECHNIQUE: Transvaginal (TV) and Transabdominal (TA) with grayscale and color Doppler imaging includi ng first trimester . FINDINGS: EXAM MEASUREMENTS: GESTATIONAL AGE / DATING Physician Established: Not yet established Dates by LMP: (4 weeks/3 days) EDC: 09/16/2025 Dates by First Scan: No previous this is first scan Dates by Current Scan for: No IUP seen at this time MATERNAL ANATOMY Limited transvaginal exam due to patient body habitus Uterus: 6.4 x 2.9 x 3.8cm Right Ovary: 3.7 x 2.3 x 2.3cm Left Ovary: 3.4 x 2.4 x 4.3cm Post CDS / Adnexa: wnl Presence of free fluid: yes Presence of corpus luteal cyst: left ovary cyst measuring 2.8cm GESTATION / SURVEY IUP: No IUP seen at this time Date of LMP: 12/10/2024 Beta HcG (if available): Not available at time of exam IMPRESSION: 1. Left ovarian cyst. Correlate clinically with serial beta hCG and/or ultrasound. [facility], , 01/10/2025 1:19 PM
[2025-01-10 13:49] VITALS: RESP 16
[2025-01-10 14:16] VITALS: BP 134/86; PULSE 90; TEMP 98
== END 2025-01-10 14:23 | disposition home or self-care (01) ==
LOC: EC 11:43
DX: O46.91 Antepartum hemorrhage, unspecified, first trimester (principal); O34.81 Maternal care for other abnormalities of pelvic organs, first trimester; Z88.8 Allergy status to other drugs, medicaments and biological substances; Z3A.01 Less than 8 weeks gestation of pregnancy
CPT/HCPCS: 36415; 76801; 76817; 80053; 81001; 84702; 85025; 86900; 86901; 99284

== ENCOUNTER → 2025-01-12 | Outpatient (CLI) | payer BC | END | disposition home or self-care (01) | LOC: LABWHC1 10:35 | PROVIDERS: ATTEND Physician Assistant | DX: Z34.90 Encounter for supervision of normal pregnancy, unspecified, unspecified trimester (principal) | CPT/HCPCS: 36415; 84702 ==